=== PATIENT | female | born 1995 | race African-American/Black ===

== ENCOUNTER 2017-02-11 14:11 | Emergency (ER) | payer OTHER | END 2017-02-11 14:20 | disposition left against medical advice (07) | LOC: ERS 14:11 | DX: Z53.21 Procedure and treatment not carried out due to patient leaving prior to being seen by health care provider (principal) ==

== ENCOUNTER 2018-06-07 16:21 | Emergency (ER) | payer OTHER, SELFPAY ==
[2018-06-07] MEDS ORDERED: Morphine 4 MG/ML VIAL ONE (17:06)
[2018-06-07] MEDS ORDERED: Ondansetron PF 4 MG/2 ML Vial ONE (17:06)
--- NOTE | 2018-06-07 17:27 | RAD ---
FRadiograph chest one view: 06/07/2018 HISTORY: 23-year-old female with sickle cell disease presents with sickle cell crisis. COMPARISON: 12/21/2016. FINDINGS: There is cardiomegaly. The lungs are clear. No pneumothorax. No interval change. IMPRESSION: 1. Cardiomegaly, evidence for sickle cell disease. 2. No evidence of pneumonia
[2018-06-07 17:31] LABS: Mean Corpuscular HGB CONC 35.5 g/dL (32.0-36.0); Mean Corpuscular Hemoglobin 30.7 pg (27.0-31.0); Mean Corpuscular Volume 86.4 fL (78.0-98.0); Platelet Count 410 thou/uL (130-400); RBC Distribution Width 14.7 % (11.5-14.5); Red Blood Cell (RBC) Count 3.25 mill/uL (4.20-5.40)
[2018-06-07 17:36] LABS: Bilirubin Negative (Negative); Blood, Urine Negative (Negative); Clarity CLEAR (Clear); Glucose, Urine (Dipstick) Negative (Negative); Leukocyte Negative (Negative); Nitrite Negative (Negative); Protein, Urine (Dipstick) Negative (Neg-Trace); pH, Urine 7.5 (5.0-9.0)
[2018-06-07 17:39] LABS: Pregnancy Test - Urine (BHCG) Negative (Negative); Pregu Control Background? CLEAR/WHITE (CLR/WHITE); Pregu Control Bar Appear? YES (CONTROL BAR)
[2018-06-07 17:39] LABS: ALT (SGPT) 21 U/L (8-55); AST (SGOT) 25 U/L (5-34); Albumin 4.3 g/dL (3.5-5.0); Alkaline Phosphatase 95 U/L (40-150); Anion Gap 12 mmol/L (10-20); BUN (Urea Nitrogen) 6 mg/dL (7.0-18.7); Bilirubin, Total 1.4 mg/dL (0.2-1.2); Calc. Creatinine Clearance 0 mL/min (70-130); Calcium 9.6 mg/dL (7.8-10.44); Carbon Dioxide 25 mmol/L (22-29); Chloride 109 mmol/L (98-107); Estimated GFR-MDRD Greater than 90; Globulin 3.2 g/dL (2.4-3.5); Glucose 87 mg/dL (70-105); Protein, Total 7.5 g/dL (6.0-8.3); Sodium 142 mmol/L (136-145)
[2018-06-07 17:46] LABS: Anisocytosis SLIGHT = 6-15 cells (100X) (0-5/hpf); Band 1 % (5-11); Eosinophils 3 % (0-10); Lymphocytes 25 % (21-51); MDiff Complete? YES; Monocytes 5 % (0-10); Neutrophil 65 % (42-75); Ovalocytes SLIGHT = 2-5 cells (100X) (0-1/hpf); Platelet Morphology Comment Appears Increased; Poikilocytosis SLIGHT = 6-15 cells (100X) (0-5/hpf); Polychromasia MODERATE = 3-4 cells (100X) (0-2/hpf); Reactive Lymphocytes 1 % (0-10); Schistocytes SLIGHT = 2-5 cells (100X) (0-1/hpf); Sickle Cells SLIGHT = 1-5 cells (100X) (None Seen); Spherocytes SLIGHT = 1-5 cells (100X) (None Seen); Target Cells SLIGHT = 2-5 cells (100X) (0-1/hpf); White Blood Cell (WBC) Count 9.7 thou/uL (4.8-10.8)
== END 2018-06-07 18:36 | disposition home or self-care (01) ==
LOC: ERS 16:21
DX: G89.29 Other chronic pain (principal); R51 Headache; F41.9 Anxiety disorder, unspecified; F32.9 Major depressive disorder, single episode, unspecified
CPT/HCPCS: 36415; 71045; 80053; 81003; 81025; 85025; 85046; 93005; 96361; 96374; 96375; J2270; J2405

== ENCOUNTER 2018-06-18 13:29 | Inpatient (IN) | payer SELFPAY ==
--- NOTE | 2018-06-18 14:09 | RAD ---
PA AND LATERAL CHEST: Date: 06/18/18 HISTORY: Chest pain. History of sickle cell. COMPARISON: 12/21/16 study. FINDINGS: Heart size is slightly enlarged. Mediastinal structures are unremarkable. Lungs are clear of any infi ltrative process. IMPRESSION: Mild cardiomegaly. No acute findings. POS: TPC
[2018-06-18 14:22] LABS: Hemoglobin 10.4 g/dL (12.0-16.0); Mean Corpuscular HGB CONC 36.3 g/dL (32.0-36.0); Mean Corpuscular Hemoglobin 31.3 pg (27.0-31.0); Mean Corpuscular Volume 86.1 fL (78.0-98.0); Mean Platelet Volume 8.1 fL (7.4-10.4); Platelet Count 453 thou/uL (130-400); RBC Distribution Width 13.1 % (11.5-14.5); Red Blood Cell (RBC) Count 3.34 mill/uL (4.20-5.40); White Blood Cell (WBC) Count 21.7 thou/uL (4.8-10.8)
[2018-06-18 14:24] LABS: Reticulocyte Count 3.8 % (0.5-1.5)
[2018-06-18 14:44] LABS: ALT (SGPT) 12 U/L (8-55); AST (SGOT) 20 U/L (5-34); Albumin 4.2 g/dL (3.5-5.0); Alkaline Phosphatase 79 U/L (40-150); Anion Gap 12 mmol/L (10-20); BUN (Urea Nitrogen) 11 mg/dL (7.0-18.7); Bilirubin, Total 1.1 mg/dL (0.2-1.2); Calc. Creatinine Clearance 0 mL/min (70-130); Calcium 9.4 mg/dL (7.8-10.44); Carbon Dioxide 25 mmol/L (22-29); Chloride 106 mmol/L (98-107); Estimated GFR-MDRD Greater than 90; Globulin 3.1 g/dL (2.4-3.5); Glucose 83 mg/dL (70-105); Potassium 4.1 mmol/L (3.5-5.1); Protein, Total 7.3 g/dL (6.0-8.3); Sodium 139 mmol/L (136-145)
[2018-06-18 14:46] LABS: Eosinophils 10 % (0-10); Lymphocytes 36 % (21-51); MDiff Complete? YES; Monocytes 9 % (0-10); Neutrophil 45 % (42-75); Nucleated RBC 2 % (0); Platelet Morphology Comment Appears Increased; Polychromasia SLIGHT = 2-3 cells (100X) (0-2/hpf); Schistocytes SLIGHT = 2-5 cells (100X) (0-1/hpf)
[2018-06-18] MEDS ORDERED: HYDROmorphone 0.5 MG/0.5 ML SYRINGE ONE (15:49)
[2018-06-18 17:07] LABS: Bilirubin Negative (Negative); Blood, Urine Negative (Negative); Clarity CLEAR (Clear); Glucose, Urine (Dipstick) Negative (Negative); Leukocyte Negative (Negative); Nitrite Negative (Negative); Protein, Urine (Dipstick) Negative (Neg-Trace); Specific Gravity, Urine 1.014 (1.002-1.036); pH, Urine 6.5 (5.0-9.0)
[2018-06-18 17:11] LABS: Pregnancy Test - Urine (BHCG) Negative (Negative); Pregu Control Background? CLEAR/WHITE (CLR/WHITE); Pregu Control Bar Appear? YES (CONTROL BAR); Specific Gravity 1.014 (1.002-1.036)
--- NOTE | 2018-06-18 18:19 | PDOC.FPRHP ---
- History of Present Illness Chief Complaint: pain History of Present Illness: 23 yo F with sickle cell presents to ED for diffuse joint pain. Started 1 week ago after moving around furniture. Tried to stay hydrated but the pain worsened despite taking her home norco & dilaudid. However, she doesn't take the recommneded amount due its addictive properties. She also endorses some rhinorrhea and cough starting after exposure to sick contact. Subjective fevers/ chills but no productive cough or wheezing. Says she has multiple crisis a year , usually needing to be hospitalized q3mo for pain control. She follows with Dr. Berumen in clinic and a specialist at [facility]. - Allergies/Adverse Reactions Allergies Allergy/AdvReac Type Severity Reaction Status Date / Time apple AdvReac Verified 06/18/18 21:21 hydromorphone [From Dilaudid] AdvReac Verified 06/18/18 21:21 - Home Medications Medication Instructions Recorded Confirmed Type HYDROcodone Bit/APAP 10/325 [Bogata] 1 - 2 tab PO Q6HR PRN 08/24/13 06/18/18 History Ibuprofen 800 mg PO Q8HR PRN 12/21/15 06/18/18 History HYDROmorphone [Dilaudid] 1 - 2 tab PO Q3H PRN 05/15/16 06/18/18 History Hydroxyurea [Hydrea] 500 mg PO TID 09/01/16 06/18/18 History Folic Acid 1 mg PO DAILY 06/18/18 06/18/18 History Naproxen [EC-Naproxen] 500 mg PO Q12H 06/18/18 06/18/18 History diphenhydrAMINE [Benadryl] 25 mg PO Q4HR PRN 06/18/18 06/18/18 History traMADol HCl [Tramadol HCl] 1 - 2 tab PO Q6H PRN 06/18/18 06/18/18 History - History PMHx: MDD, anxiety PSHx: cholecystectomy FHx: sickle cell trait Social: denies t/e/d - Review of Systems General: reports: fever/chills, weight/appetite/sleep changes, fatigue Eyes: denies: vision changes ENT: reports: rhinorrhea Respiratory: reports: cough. denies: shortness of breath Cardiovascular: denies: chest pain, palpitation Gastrointestinal: denies: nausea, vomiting, diarrhea, constipation, GI bleeding Genitourinary: denies: dysuria Skin: denies: rashes, lesions Musculoskeletal: reports: pain, tenderness Neurological: reports: weakness. denies: seizure Psychological: reports: anxiety, depression - Vital signs BP: 136/72, Pulse: 81, Resp: 18, Temp: 98.8 (Oral), Pain: 8, O2 sat: 98 on Room Air, Time: 06/18/2018 13:38. - Physical Exam Constitutional: NAD, awake, alert and oriented -Constitutional: dry mucosal membranes HEENT: normocephalic and atraumatic, PERRLA, EOMI, conjunctiva clear, no scleral icterus Neck: supple, FROM, trachea midline Chest: no-tender to palpation, no lesions Heart: RRR, normal S1/S2, pulses present Lungs: CTAB, no respiratory distress, no wheezing Abdomen: soft, non-tender Neurological: no focal deficit, CN II-XII intact Skin: no rash/lesions, capillary refill <2 seconds Heme/Lymphatic: no unusual bruising or bleeding, no purpura FMR H&P: Results - Labs Result Diagrams: 06/18/18 14:06 06/18/18 14:06 Lab results: WBC 21.7 thou/uL (4.8-10.8) H 06/18/18 14:06 Hgb 10.4 g/dL (12.0-16.0) L 06/18/18 14:06 Hct 28.7 % (36.0-47.0) L 06/18/18 14:06 MCV 86.1 fL (78.0-98.0) 06/18/18 14:06 Plt Count 453 thou/uL (130-400) H 06/18/18 14:06 Sodium 139 mmol/L (136-145) 06/18/18 14:06 Potassium 4.1 mmol/L (3.5-5.1) 06/18/18 14:06 Chloride 106 mmol/L (98-107) 06/18/18 14:06 Carbon Dioxide 25 mmol/L (22-29) 06/18/18 14:06 BUN 11 mg/dL (7.0-18.7) 06/18/18 14:06 Creatinine 0.74 mg/dL (0.6-1.1) 06/18/18 14:06 Glucose 83 mg/dL (70-105) 06/18/18 14:06 Calcium 9.4 mg/dL (7.8-10.44) 06/18/18 14:06 Total Bilirubin 1.1 mg/dL (0.2-1.2) 06/18/18 14:06 AST 20 U/L (5-34) 06/18/18 14:06 ALT 12 U/L (8-55) 06/18/18 14:06 Alkaline Phosphatase 79 U/L (40-150) 06/18/18 14:06 Serum Total Protein 7.3 g/dL (6.0-8.3) 06/18/18 14:06 Albumin 4.2 g/dL (3.5-5.0) 06/18/18 14:06 Urine Ketones Negative mg/dL (Negative) 06/18/18 16:40 Urine Blood Negative (Negative) 06/18/18 16:40 Urine Nitrite Negative (Negative) 06/18/18 16:40 Ur Leukocyte Esterase Negative (Negative) 06/18/18 16:40 - Radiology Interpretation Chest x-ray Status: image reviewed by me, report reviewed by me Additional comment: mild cardiomegaly no new infiltrate FMR H&P: A/P - Problem List (1) Sickle cell crisis Current Visit: No Status: Acute Code(s): D57.00 - HB-SS DISEASE WITH CRISIS , UNSPECIFIED (2) Intractable pain Current Visit: No Status: Resolved Code(s): R52 - PAIN, UNSPECIFIED (3) Depression Current Visit: Yes Status: Acute Code(s): F32.9 - MAJOR DEPRESSIVE DISORDER , SINGLE EPISODE, UNSPECIFIED (4) Anxiety Current Visit: Yes Status: Acute Code(s): F41.9 - ANXIETY DISORDER, UNSPECIFIED - Plan #Acute sickle cell crisis -Likely precipitated from dehydration from physical exertion -s/p 1L in ED, will bolus 1L, start in mIVF -Afebrile, CXR neg for new infiltrate-no concern for acute chest syndrome -Absolute retic count <2, c/w hypoproliferation -Continue home dilaudid & norco for pain control with IV morphine for breakthrough #Sickle cell anemia -Hb 10, around baseline for patient -resume home pain meds & hydroxyurea & folic acid #Depression -not interested in meds at this point -continue outpt CBT with Dr. Holliday since has been helping #Anxiety -see above dvt ppx: Not indicated dispo: <[address] Bal FMR H&P: Upper Level - Pertinent history 23 yo AAF with PMH of sickle cell disease presenting with worsening hip and back pain. Pt denies fevers, cough, trouble breathing, or CP. Pt notes she feels similar to previous pain crises in the past. - Pertinent findings VSS Gen: pleasant, in mild distress 2/2 pain CV: RRR Resp: CTAB - Plan Date/Time: 06/18/181818 I, Aditya Pastor MD PGY3, have evaluated this patient and agree with findings/ plan as outlined by software developer intern resident. Pertinent changes/additions are listed here. 1. Sickle cell pain crisis -Pt presents with worsening pain similar to previous pain crises. Pt is on Bogata and Dilaudid at home for pain control. Pt received 2 mg of IV dilaudid in the ER and notes an improvement in symptoms. -Pt had routine workup in ER with CXR that showed no acute process. Lab work reveals CBC that appear stable at pt's baseline. Absolute reticulocyte count is 2.6 which indicates slight hypoproliferation. No evidence of infection on lab work. No concern for acute chest syndrome. -Admit pt to medical observation for pain control. -Continue home medications and provide morphine 4 mg q4h PRN severe pain and morphine 2 mg q2h PRN breakthrough pain. -Continue to monitor closely. FULL code disposition: Admit to medical observation for anticipated length of stay less than two midnights, pending clinical course. Addendum - Attending - Attending Attestation Date/Time: 06/18/182135 I personally evaluated the patient and discussed the management with Drs. Pa/ Dawit I agree with the History, Examination, Assessment and Plan documented above with any addition or exceptions noted below. 23 yo AAF with Sickle cell anemia well known to [facility] followed by [facility] Dr Fatima and CAREM[facility] [place]. Patient with 10 days pain crisis to hips and back not relieved with home regimen of norco and dilaudid. Patient lab in Jan 2019 reticulocyte count 5.7 LDH 212 plts 594,000 H/H 12/28. PMHX s/p cholecystectomy vaccine UTD , hx eye O.S. related SC diplopia, depression/anxiety, asthmatic bronchitis,DUB off contraceptive Incidental CXR finding mild cardiomegaly no infiltrates Echocardiogram 2015 NL last transfusion October 2017 patient on hydroxyurea and folic acid Current Lab neg HCG WBC 21,700 HG 10.4 HCT 28 Plts 453,000 U/A negative micro flu swab pending procalcitonin pending . Rec hydration and iv opiod pain relief consider GRINDER AND PLATER and/or ketamine if pain relief ineffective monitor O2 sat and if decline significantly from baseline consider oxygen supplementation. Watch s/s septicemia note elevated WBC likely reactive continue monitor VS and expectant management,continue hydroxyurea consult Dr Fatima prn.
[2018-06-18] MEDS ORDERED: Ondansetron ODT 4 MG TAB SL PRN (19:41)
[2018-06-18] MEDS ORDERED: Ondansetron PF 4 MG/2 ML Vial IVP PRN (19:41)
[2018-06-18] MEDS ORDERED: Lactated Ringer's 1,000 ML IV SCH (19:44)
[2018-06-18 19:45] VITALS: BMI 30.2
[2018-06-18] MEDS: Sodium Chloride 0.9% 1,000 ML IV SCH (20:32)
[2018-06-18] MEDS: Morphine 2 MG/ML SYRINGE SLOW IVP PRN (20:38)
[2018-06-18] MEDS: Lactated Ringer's 1,000 ML IV SCH (21:42)
[2018-06-18] MEDS: Acetaminophen 325 MG TAB PO PRN (22:55)
[2018-06-18] MEDS ORDERED: HYDROMORPHONE PO PRN (23:16)
[2018-06-18] MEDS ORDERED: HYDROcodone/Acetaminophen 10/325 mg Tablet PO PRN (23:16)
[2018-06-18] MEDS ORDERED: Morphine 4 MG/ML VIAL SLOW IVP PRN (23:18)
[2018-06-18] MEDS ORDERED: diphenhydrAMINE 25 MG CAP PO PRN ×2 (23:21→23:33)
[2018-06-18] MEDS ORDERED: HYDROmorphone 2 MG TAB PO PRN (23:28)
[2018-06-19] MEDS: HYDROmorphone 2 MG TAB PO PRN ×2 (00:25→05:59)
[2018-06-19] MEDS: Sodium Chloride 0.9% 1,000 ML IV SCH (03:12)
[2018-06-19 05:48] LABS: Hemoglobin 8.9 g/dL (12.0-16.0); Mean Corpuscular HGB CONC 35.8 g/dL (32.0-36.0); Mean Corpuscular Hemoglobin 30.9 pg (27.0-31.0); Mean Corpuscular Volume 86.3 fL (78.0-98.0); Mean Platelet Volume 8.3 fL (7.4-10.4); Platelet Count 404 thou/uL (130-400); Red Blood Cell (RBC) Count 2.88 mill/uL (4.20-5.40); White Blood Cell (WBC) Count 10.9 thou/uL (4.8-10.8)
[2018-06-19 05:49] LABS: Eosinophils 14 % (0-10); Lymphocytes 52 % (21-51); MDiff Complete? YES; Monocytes 6 % (0-10); Neutrophil 28 % (42-75); Platelet Morphology Comment Appears Increased; Target Cells SLIGHT = 2-5 cells (100X) (0-1/hpf)
--- NOTE | 2018-06-19 06:52 | PDOC.FM ---
- Subjective Subjective: Ms. De Santiago says she continues to have increased pain above baseline. Says morphine is taking off the edge. Denies SOB, respiratory symptoms. Does have some nasal congestion, itchy throat. Takes loratadine at home for allergies. - Objective Vital Signs & Weight: Vital Signs (12 hours) Temp Pulse Resp BP BP Pulse Ox 06/19/18 05:49 73 16 108/58 L 98 06/19/18 04:19 98.1 F 77 20 91/49 L 97 06/19/18 01:39 81 16 135/77 98 06/19/18 00:29 81 16 116/66 98 06/18/18 19:45 98.5 F 75 16 130/58 L 100 Weight Weight 75.024 kg I&O: 06/17/18 06/18/18 06/19/18 06:59 06:59 06:59 Intake Total 1892 Output Total 1999 Balance -108 Result Diagrams: 06/19/18 04:27 06/18/18 14:06 Phys Exam - Physical Examination Constitutional: NAD Respiratory: clear to auscultation bilateral Cardiovascular: RRR, no significant murmur Gastrointestinal: soft, non-tender, positive bowel sounds Musculoskeletal: no edema Neurological: non-focal Psychiatric: normal affect Skin: normal turgor Dx/Plan (1) Sickle cell pain crisis Code(s): D57.00 - HB-SS DISEASE WITH CRISIS, UNSPECIFIED Status: Acute (2) Sickle cell anemia Code(s): D57.1 - SICKLE-CELL DISEASE WITHOUT CRISIS Status: Acute (3) Anxiety Code(s): F41.9 - ANXIETY DISORDER, UNSPECIFIED Status: Acute (4) Depression Code(s): F32.9 - MAJOR DEPRESSIVE DISORDER, SINGLE EPISODE, UNSPECIFIED Status : Acute - Plan Plan: Acute sickle cell pain crisis -Likely precipitated from dehydration from physical exertion -Continue IVF -Afebrile, CXR neg for new infiltrate-no concern for acute chest syndrome -Absolute retic count 2.6, c/w hypoproliferation -Continue home dilaudid & norco for pain control with IV morphine for breakthrough Sickle cell anemia -Hb 8.9, around baseline for patient -resume home pain meds & hydroxyurea & folic acid Seasonal allergies - add loratadine Depression -not interested in meds at this point -continue outpt CBT with Dr. Holliday since has been helping Anxiety -see above dvt ppx: Not indicated dispo: pending pain improvement Addendum - Attending - Attending Attestation Date/Time: 06/19/18 [id number] I personally evaluated the patient and discussed the management with Dr. Caceres. I agree with the History, Examination, Assessment and Plan documented above with any addition or exceptions noted below. Sickle cell pain crisis-last one was in Jan 2018 at [facility] in [place]. Continue IVF , O2, hydroxyurea. Schedule home pain medications and give prn IV morphine. May need PRODUCTION TEAM LEADER pump if we can't get control of her pain.
[2018-06-19] MEDS: Hydroxyurea 500 MG CAP PO SCH ×3 (08:22→20:52)
[2018-06-19] MEDS: Folic Acid 1 MG TAB PO SCH (08:22)
[2018-06-19] MEDS: Lactated Ringer's 1,000 ML IV SCH ×2 (08:27→17:37)
[2018-06-19] MEDS ORDERED: HYDROmorphone 2 MG TAB PO PRN (08:31)
[2018-06-19] MEDS ORDERED: Loratadine 10 MG TAB PO PRN (08:45)
[2018-06-19] MEDS ORDERED: Docusate 100 MG CAP PO PRN (08:46)
[2018-06-19] MEDS ORDERED: Enoxaparin Sodium 40 MG/0.4 ML SYRINGE SC SCH (09:00)
[2018-06-19] MEDS: HYDROcodone/Acetaminophen 10/325 mg Tablet PO SCH ×3 (09:34→20:52)
[2018-06-19] MEDS: Morphine 2 MG/ML SYRINGE SLOW IVP PRN ×4 (09:40→23:28)
[2018-06-19] MEDS: HYDROmorphone 2 MG TAB PO SCH ×2 (11:44→17:37)
[2018-06-20] MEDS: HYDROmorphone 2 MG TAB PO SCH ×5 (01:04→23:59)
[2018-06-20] MEDS: Lactated Ringer's 1,000 ML IV SCH ×3 (02:26→20:36)
[2018-06-20] MEDS: HYDROcodone/Acetaminophen 10/325 mg Tablet PO SCH ×4 (04:24→20:31)
--- NOTE | 2018-06-20 06:58 | PDOC.FM ---
- Subjective Subjective: Ms. De Santiago reports she is feeling better and pain is well controlled but says she feels increased pain when the morphine is wearing off. Tolerating PO intake well. Denies difficulty breathing, chest pain. - Objective Vital Signs & Weight: Vital Signs (12 hours) Temp Pulse Resp BP Pulse Ox 06/20/18 04:26 98.4 F 77 18 114/59 L 100 06/19/18 23:44 98.3 F 71 15 106/62 97 Weight Weight 75.024 kg I&O: 06/18/18 06/19/18 06/20/18 06:59 06:59 06:59 Intake Total 1892 5087 Output Total 19990 Balance -108 537 Result Diagrams: 06/19/18 04:27 06/18/18 14:06 Phys Exam - Physical Examination Constitutional: NAD Respiratory: clear to auscultation bilateral Cardiovascular: RRR, no significant murmur Gastrointestinal: soft, non-tender Musculoskeletal: no edema Neurological: non-focal, moves all 4 limbs Psychiatric: normal affect Skin: normal turgor Dx/Plan (1) Sickle cell pain crisis Code(s): D57.00 - HB-SS DISEASE WITH CRISIS, UNSPECIFIED Status: Acute (2) Sickle cell anemia Code(s): D57.1 - SICKLE-CELL DISEASE WITHOUT CRISIS Status: Acute (3) Anxiety Code(s): F41.9 - ANXIETY DISORDER, UNSPECIFIED Status: Acute (4) Depression Code(s): F32.9 - MAJOR DEPRESSIVE DISORDER, SINGLE EPISODE, UNSPECIFIED Status : Acute - Plan Plan: Acute sickle cell pain crisis -Likely precipitated from dehydration from physical exertion -Continue IVF -Afebrile, CXR neg for new infiltrate-no concern for acute chest syndrome -Absolute retic count 2.6, c/w hypoproliferation -Continue home dilaudid & norco for pain control with IV morphine for breakthrough Sickle cell anemia -Hb 8.9, around baseline for patient -resume home pain meds & hydroxyurea & folic acid Seasonal allergies - continue loratadine Depression -not interested in meds at this point -continue outpt CBT with Dr. Holliday since has been helping Anxiety -see above dvt ppx: Not indicated dispo: pending pain improvement Addendum - Attending - Attending Attestation Date/Time: 06/20/18 [id number] I personally evaluated the patient and discussed the management with Dr. Caceres I agree with the History, Examination, Assessment and Plan documented above with any addition or exceptions noted below. Sickle cell crisis- pain improving but still requiring iv morphine. Continue IVF, O2, pain meds. Expect d/c in next 1-2 days
[2018-06-20] MEDS: Hydroxyurea 500 MG CAP PO SCH ×3 (08:15→20:32)
[2018-06-20] MEDS: Folic Acid 1 MG TAB PO SCH (08:16)
[2018-06-20] MEDS: Morphine 4 MG/ML VIAL SLOW IVP PRN ×3 (09:17→20:30)
[2018-06-20] MEDS: Loratadine 10 MG TAB PO SCH (09:17)
[2018-06-21] MEDS: Morphine 4 MG/ML VIAL SLOW IVP PRN ×6 (00:34→20:12)
[2018-06-21] MEDS: HYDROcodone/Acetaminophen 10/325 mg Tablet PO SCH ×4 (02:33→19:47)
[2018-06-21] MEDS: HYDROmorphone 2 MG TAB PO SCH ×4 (05:46→23:05)
[2018-06-21] MEDS: Lactated Ringer's 1,000 ML IV SCH ×4 (05:47→23:06)
--- NOTE | 2018-06-21 07:11 | PDOC.FM ---
- Subjective Subjective: Pt report doing fair this morning. She reports pain is moderately controlled. She denies nausea, vomiting, or chest pain. Denies SOB - Objective MAR Reviewed: Yes Vital Signs & Weight: Vital Signs (12 hours) Temp Pulse Resp BP Pulse Ox 06/21/18 05:48 98 F 86 18 118/76 97 06/21/18 00:45 98.2 F 83 18 112/74 95 06/20/18 20:00 98.3 F 91 18 127/85 98 Weight Weight 75.024 kg I&O: 06/20/18 06/21/18 06/22/18 06:59 06:59 06:59 Intake Total 5087 1908 Output Total 4550 1200 Balance 537 708 Result Diagrams: 06/19/18 04:27 06/18/18 14:06 Phys Exam - Physical Examination Constitutional: NAD HEENT: moist MMs Neck: no JVD, full ROM calm respirations, equal chest rise dry skin, regular rate and rhythm Gastrointestinal: soft, non-tender, no distention, positive bowel sounds Musculoskeletal: no edema, pulses present Neurological: moves all 4 limbs Psychiatric: normal affect, A&O x 3 Skin: cap refill <2 seconds Dx/Plan (1) Anxiety Code(s): F41.9 - ANXIETY DISORDER, UNSPECIFIED Status: Acute (2) Depression Code(s): F32.9 - MAJOR DEPRESSIVE DISORDER, SINGLE EPISODE, UNSPECIFIED Status : Acute (3) SC disease Code(s): D57.20 - SICKLE-CELL/HB-C DISEASE WITHOUT CRISIS Status: Acute (4) Sickle cell pain crisis Code(s): D57.00 - HB-SS DISEASE WITH CRISIS, UNSPECIFIED Status: Acute - Plan Plan: Acute sickle cell pain crisis -Continue IVFs -Continue scheduled and PRN opioid pain management -Continues to be Afebrile, CXR shows no acute intrathoracic changes Sickle cell anemia -Hbg near baseline -Continue home meds, hydroxyurea, and folic acid Seasonal allergies -Continue loratadine Depression/anxiety -CBT with Dr. Holliday outpt
[2018-06-21] MEDS: Folic Acid 1 MG TAB PO SCH (08:04)
[2018-06-21] MEDS: Loratadine 10 MG TAB PO SCH (08:04)
[2018-06-21] MEDS: Enoxaparin Sodium 40 MG/0.4 ML SYRINGE SC SCH (08:04)
[2018-06-21] MEDS: Hydroxyurea 500 MG CAP PO SCH ×3 (09:16→19:48)
--- NOTE | 2018-06-21 12:42 | PRG ---
DATE OF SERVICE: 06/21/2018 Ms. De Santiago is an unfortunate 23-year-old black female with sickle cell disease. She was admitted in a pain crisis. She is requiring large amounts of pain medications and fluids, but is feeling somewhat improved. She also gives a history of possible anovulatory cycles. She is overweight with facial acne, and we need to consider the possibility of PCOS. I recommend we do an A1c and lipids. She is not hypertensive. In the event, clinically, she is somewhat improved, though we will continue with aggressive pain management and fluid management. Job ID: [id number]
[2018-06-22] MEDS: Morphine 4 MG/ML VIAL SLOW IVP PRN ×6 (00:04→20:58)
[2018-06-22] MEDS: HYDROcodone/Acetaminophen 10/325 mg Tablet PO SCH ×4 (02:06→19:40)
[2018-06-22] MEDS: HYDROmorphone 2 MG TAB PO SCH ×3 (05:48→17:20)
--- NOTE | 2018-06-22 06:36 | PDOC.FM ---
- Subjective Subjective: Pt states her pain is turning the corner. She states she was able to shower and walk some yesterday. She reports occasional SOB and a twinge of chest pain. She reports he pain is primarily in her hips. - Objective MAR Reviewed: Yes Vital Signs & Weight: Vital Signs (12 hours) Temp Pulse Resp BP Pulse Ox 06/22/18 04:00 98.5 F 83 16 106/67 99 06/22/18 00:00 98.2 F 88 16 115/70 100 06/21/18 20:25 98.1 F 87 16 123/82 100 06/21/18 20:00 97 Weight Weight 75.024 kg I&O: 06/20/18 06/21/18 06/22/18 06:59 06:59 06:59 Intake Total 5087 1908 1720 Output Total 4550 1200 Balance 807 732 7069 Result Diagrams: 06/19/18 04:27 06/18/18 14:06 Phys Exam - Physical Examination Constitutional: NAD HEENT: moist MMs Neck: no JVD, full ROM Respiratory: no wheezing, clear to auscultation bilateral Cardiovascular: RRR, no significant murmur, no rub Gastrointestinal: soft, no distention, positive bowel sounds Musculoskeletal: no edema, pulses present Neurological: normal sensation, moves all 4 limbs Psychiatric: normal affect, A&O x 3 Skin: cap refill <2 seconds Dx/Plan (1) Anxiety Code(s): F41.9 - ANXIETY DISORDER, UNSPECIFIED Status: Acute (2) Depression Code(s): F32.9 - MAJOR DEPRESSIVE DISORDER, SINGLE EPISODE, UNSPECIFIED Status : Acute (3) SC disease Code(s): D57.20 - SICKLE-CELL/HB-C DISEASE WITHOUT CRISIS Status: Acute (4) Sickle cell pain crisis Code(s): D57.00 - HB-SS DISEASE WITH CRISIS, UNSPECIFIED Status: Acute - Plan Plan: Acute sickle cell pain crisis -Continue IVFs -Continue scheduled and PRN opioid pain management -Continues to be Afebrile, CXR shows no acute intrathoracic changes Sickle cell anemia -Hbg near baseline -Continue home meds, hydroxyurea, and folic acid Seasonal allergies -Continue loratadine Depression/anxiety -CBT with Dr. Holliday outpt
[2018-06-22] MEDS: Folic Acid 1 MG TAB PO SCH (07:55)
[2018-06-22] MEDS: Enoxaparin Sodium 40 MG/0.4 ML SYRINGE SC SCH (07:55)
[2018-06-22] MEDS: Hydroxyurea 500 MG CAP PO SCH ×3 (07:55→19:40)
[2018-06-22] MEDS: Loratadine 10 MG TAB PO SCH (07:55)
[2018-06-22] MEDS: Lactated Ringer's 1,000 ML IV SCH ×3 (07:57→19:42)
[2018-06-22 09:48] LABS: Cardiac Risk 3.1 (Less than 4.5)
--- NOTE | 2018-06-22 12:30 | PRG ---
DATE OF SERVICE: 06/22/2018 SUBJECTIVE: Ms. De Santiago is much more comfortable this morning. Her pain is becoming under control. We will continue to adjust her medications and likely discharge tomorrow. Lipids appear good with a triglyceride of 83, cholesterol 147, LDL 82, HDL of 48. Job ID: [id number]
[2018-06-23] MEDS: HYDROmorphone 2 MG TAB PO SCH ×3 (00:15→12:28)
[2018-06-23] MEDS: Morphine 4 MG/ML VIAL SLOW IVP PRN ×2 (01:15→08:40)
[2018-06-23] MEDS: Acetaminophen 325 MG TAB PO PRN (01:19)
[2018-06-23] MEDS: HYDROcodone/Acetaminophen 10/325 mg Tablet PO SCH ×3 (02:29→14:20)
[2018-06-23] MEDS: Lactated Ringer's 1,000 ML IV SCH (06:01)
--- NOTE | 2018-06-23 06:24 | PDOC.FM ---
- Subjective Subjective: Reports pain is improving. Denies chest pain. Reports some shortness of breath but it is her baseline. She has not been up walking yet. Voiding and stooling. - Objective MAR Reviewed: Yes Vital Signs & Weight: Vital Signs (12 hours) Temp Pulse Resp BP Pulse Ox 06/23/18 04:06 98.4 F 86 18 104/68 98 06/23/18 01:04 99.4 F 91 20 116/76 98 06/22/18 20:28 98.9 F 80 18 128/83 100 06/22/18 20:00 99 Weight Weight 75.024 kg I&O: 06/21/18 06/22/18 06/23/18 06:59 06:59 06:59 Intake Total 1908 1720 2160 Output Total 1200 Balance 708 1720 2160 Result Diagrams: 06/19/18 04:27 06/18/18 14:06 Phys Exam - Physical Examination Constitutional: NAD HEENT: moist MMs Neck: supple Respiratory: no wheezing, clear to auscultation bilateral Cardiovascular: RRR, no significant murmur Gastrointestinal: soft, non-tender, positive bowel sounds Musculoskeletal: no edema, pulses present Neurological: moves all 4 limbs Psychiatric: normal affect, A&O x 3 Skin: normal turgor Dx/Plan (1) Sickle cell crisis Code(s): D57.00 - HB-SS DISEASE WITH CRISIS, UNSPECIFIED Status: Acute (2) Anxiety Code(s): F41.9 - ANXIETY DISORDER, UNSPECIFIED Status: Acute (3) Depression Code(s): F32.9 - MAJOR DEPRESSIVE DISORDER, SINGLE EPISODE, UNSPECIFIED Status : Acute (4) GERD (gastroesophageal reflux disease) Code(s): K21.9 - GASTRO-ESOPHAGEAL REFLUX DISEASE WITHOUT ESOPHAGITIS Status: Acute (5) Normocytic anemia Code(s): D64.9 - ANEMIA, UNSPECIFIED Status: Acute (6) Sickle cell anemia Code(s): D57.1 - SICKLE-CELL DISEASE WITHOUT CRISIS Status: Acute - Plan Plan: 23yo female with hx of sickle cell anemia presenting with sickle cell crisis Acute sickle cell pain crisis - Continue LR @110 - Continue scheduled and PRN opioid pain management - Afebrile, CXR shows no acute intrathoracic changes Sickle cell anemia - Hgb near baseline - Continue home meds hydroxyurea, and folic acid Seasonal allergies - Continue loratadine Depression/anxiety - CBT with Dr. Holliday outpt Code Status: FULL DVT ppx: Lovenox PCP: [facility] (Dr Berumen)
[2018-06-23 08:21] VITALS: TEMP 98.5
[2018-06-23] MEDS: Folic Acid 1 MG TAB PO SCH (08:35)
[2018-06-23] MEDS: Loratadine 10 MG TAB PO SCH (08:35)
[2018-06-23] MEDS: Enoxaparin Sodium 40 MG/0.4 ML SYRINGE SC SCH (08:35)
[2018-06-23] MEDS: Hydroxyurea 500 MG CAP PO SCH ×2 (08:36→14:21)
[2018-06-23] MEDS ORDERED: Morphine 2 MG/ML SYRINGE SLOW IVP PRN (09:16)
[2018-06-23 12:39] VITALS: BP 113/74
--- NOTE | 2018-06-23 14:40 | PRG ---
DATE OF SERVICE: 06/23/2018 Ms. De Santiago's pain control is now tolerable. Overall, she is much improved and likely be discharged later this afternoon if her pain is controlled with oral medications only. Job ID: [id number]
--- NOTE | 2018-06-24 16:55 | DIS ---
DATE OF ADMISSION: 06/20/2018 DATE OF DISCHARGE: 06/23/2018 RESIDENT: Shelbie Orta MD, PGY-1. ADMITTING ATTENDING: Travis Bal MD DISCHARGE ATTENDING: Jim Locke MD CONSULTS: None. PROCEDURE: Chest x-ray, mild cardiomegaly, no acute findings. PRIMARY DIAGNOSIS: Sickle cell crisis. SECONDARY DIAGNOSES: 1. Sickle cell anemia. 2. Seasonal allergies. 3. Depression and anxiety. DISCHARGE MEDICATIONS: 1. Benadryl 25 mg q.4 hours p.r.n. 2. Folic acid 1 mg daily. 3. Draper 10/325, 1-2 tabs q.6 hours p.r.n. 4. Dilaudid 4 mg, 1 to 2 tabs q.3 hours p.r.n. 5. Hydroxyurea 500 mg t.i.d. 6. Ibuprofen 800 mg q.8 hours p.r.n. 7. Naproxen 500 mg q.12 hours p.r.n. 8. Tramadol 50 mg 1 to 2 tabs q.6 hours p.r.n. HISTORY OF PRESENT ILLNESS/HOSPITAL COURSE: Ms. De Santiago is a 23-year-old female with past medical history of sickle cell anemia, who presented to the ED with sickle cell crisis starting one week ago after moving furniture. She has multiple crises a year, usually hospitalized every 3 months for pain control. Follows with Dr. Berumen at [facility] and a color maker dyer at [facility] in [place]. Vitals on admission, the patient was afebrile, blood pressure 136/72, pulse 81. Chest x-ray showed mild cardiomegaly. No new infiltrates. The patient received 2 L of normal saline and was started on maintenance IV fluids. No concern for acute chest syndrome. Absolute retic count less than 2, consistent with hypo-proliferation. The patient was continued on home Dilaudid and Draper with IV morphine for breakthrough. In regard to the sickle cell anemia, her hemoglobin was 10, which was around baseline for the patient. She was continued on hydroxyurea and folic acid. The patient was able to slowly wean from breakthrough IV morphine, stable on home Dilaudid and Draper, and ready for discharge on the day of admission. She did report having some help at home from her mother to care for her daughter while she was still having pain. In regard to her depression, she is not interested in medications at this point. She will continue outpatient CBT with Dr. Holliday. DISPOSITION: Stable. DISCHARGE INSTRUCTIONS: 1. Location: Home. 2. Diet: No restrictions. 3. Activity: As tolerated. 4. Followup: Follow up with PCP, Dr. Berumen, at [facility] within 7 days. Job ID: [id number]
== END 2018-06-23 17:50 | disposition home or self-care (01) | DRG 812 ==
LOC: ERS 13:29 → 2SW 19:32 → OBSVTOIN 06-20 10:52 → T4-B 06-20 12:33
PROVIDERS: ADMIT Family Medicine; ATTEND Family Medicine
DX: D57.00 Hb-SS disease with crisis, unspecified (principal); F32.9 Major depressive disorder, single episode, unspecified; F41.9 Anxiety disorder, unspecified; Z88.8 Allergy status to other drugs, medicaments and biological substances; Z90.49 Acquired absence of other specified parts of digestive tract
CPT/HCPCS: 36415; 71046; 80053; 80061; 81003; 81025; 83036; 85025; 85046; 90471; 90732; 96361; 96365; 96366; G0009; J1170; J1650; J2270; Q0163

== ENCOUNTER 2018-10-11 16:31 | Emergency (ER) | payer SELFPAY ==
[2018-10-11 17:21] LABS: Bacteria/HPF None Seen HPF (None Seen); Bilirubin Negative (Negative); Blood, Urine Trace (Negative); Clarity Clear (Clear); Glucose, Urine (Dipstick) Normal (Negative); Leukocyte Negative Leu/uL (Negative); Nitrite Negative (Negative); Protein, Urine (Dipstick) Negative (Neg-Trace); RBC/HPF 0-3 HPF (0-3); Squamous Epithelial 0-3 HPF (0-3); Urobilinogen Normal mg/dL (Less than 2); WBC/HPF 0-3 HPF (0-3)
[2018-10-11 17:36] LABS: Reticulocyte Count 6.6 % (0.5-1.5)
[2018-10-11 17:42] LABS: Hemoglobin 9.1 g/dL (12.0-16.0); Mean Corpuscular HGB CONC 35.2 g/dL (32.0-36.0); Mean Corpuscular Hemoglobin 30.1 pg (27.0-31.0); Mean Corpuscular Volume 85.4 fL (78.0-98.0); Mean Platelet Volume 7.7 fL (7.4-10.4); Platelet Count 395 thou/uL (130-400); RBC Distribution Width 15.8 % (11.5-14.5); Red Blood Cell (RBC) Count 3.01 mill/uL (4.20-5.40); White Blood Cell (WBC) Count 11.5 thou/uL (4.8-10.8)
[2018-10-11 17:57] LABS: ALT (SGPT) 24 U/L (8-55); AST (SGOT) 26 U/L (5-34); Albumin 4.2 g/dL (3.5-5.0); Alkaline Phosphatase 111 U/L (40-150); Anion Gap 10 mmol/L (10-20); BUN (Urea Nitrogen) 11 mg/dL (7.0-18.7); Bilirubin, Total 1.4 mg/dL (0.2-1.2); Calc. Creatinine Clearance 0 mL/min (70-130); Calcium 9.6 mg/dL (7.8-10.44); Carbon Dioxide 28 mmol/L (22-29); Chloride 104 mmol/L (98-107); Estimated GFR-MDRD Greater than 90; Globulin 2.9 g/dL (2.4-3.5); Glucose 83 mg/dL (70-105); Potassium 4.1 mmol/L (3.5-5.1); Protein, Total 7.1 g/dL (6.0-8.3); Sodium 138 mmol/L (136-145)
[2018-10-11 18:03] LABS: Anisocytosis SLIGHT = 6-15 cells (100X) (0-5/hpf); Eosinophils 3 % (0-10); Lymphocytes 76 % (21-51); MDiff Complete? YES; Monocytes 7 % (0-10); Neutrophil 14 % (42-75); Platelet Morphology Comment Appears Adequate; Poikilocytosis SLIGHT = 6-15 cells (100X) (0-5/hpf); Polychromasia SLIGHT = 2-3 cells (100X) (0-2/hpf); Target Cells SLIGHT = 2-5 cells (100X) (0-1/hpf)
== END 2018-10-11 17:49 | disposition left against medical advice (07) ==
LOC: ERS 16:31
DX: Z53.21 Procedure and treatment not carried out due to patient leaving prior to being seen by health care provider (principal)
CPT/HCPCS: 36415; 80053; 81003; 81015; 85025; 85046

== ENCOUNTER 2018-11-01 11:04 | Inpatient (IN) | payer MEDICAID, SELFPAY ==
--- NOTE | 2018-11-01 11:34 | RAD ---
Chest 2 views: 11/01/2018 COMPARISON: 06/18/2018 HISTORY: Bilateral flank pain with fever FINDINGS: Lungs are clear. Heart and mediastinal contours are unremarkable. Clips in right upper quad rant suggest prior cholecystectomy. IMPRESSION: No acute findings.
[2018-11-01 12:00] LABS: Bacteria/HPF 3+ HPF (None Seen); Bilirubin 1+ (Negative); Blood, Urine 1+ (Negative); Clarity Turbid (Clear); Glucose, Urine (Dipstick) Normal (Negative); Leukocyte 500 Leu/uL (Negative); Nitrite Negative (Negative); Protein, Urine (Dipstick) 30 mg/dL (Neg-Trace); Squamous Epithelial 0-3 HPF (0-3); Urobilinogen 6 mg/dL (Less than 2); WBC/HPF Greater than 50 HPF (0-3)
[2018-11-01 12:15] LABS: Pregnancy Test - Urine (BHCG) Negative (Negative); Pregu Control Background? CLEAR/WHITE (CLR/WHITE); Pregu Control Bar Appear? YES (CONTROL BAR); Specific Gravity 1.015 (1.002-1.036)
[2018-11-01 12:28] LABS: Hemoglobin 9.1 g/dL (12.0-16.0); Mean Corpuscular HGB CONC 36.1 g/dL (32.0-36.0); Mean Corpuscular Hemoglobin 29.8 pg (27.0-31.0); Mean Corpuscular Volume 82.4 fL (78.0-98.0); Mean Platelet Volume 7.8 fL (7.4-10.4); Platelet Count 413 thou/uL (130-400); RBC Distribution Width 14.3 % (11.5-14.5); Red Blood Cell (RBC) Count 3.04 mill/uL (4.20-5.40)
[2018-11-01 12:32] LABS: Reticulocyte Count 4.3 % (0.5-1.5)
[2018-11-01 12:43] LABS: ALT (SGPT) 55 U/L (8-55); AST (SGOT) 45 U/L (5-34); Albumin 3.9 g/dL (3.5-5.0); Alkaline Phosphatase 158 U/L (40-150); Anion Gap 13 mmol/L (10-20); BUN (Urea Nitrogen) 7 mg/dL (7.0-18.7); Calc. Creatinine Clearance 0 mL/min (70-130); Calcium 9.2 mg/dL (7.8-10.44); Carbon Dioxide 20 mmol/L (22-29); Chloride 106 mmol/L (98-107); Estimated GFR-MDRD Greater than 90; Globulin 2.7 g/dL (2.4-3.5); Glucose 108 mg/dL (70-105); Potassium 3.2 mmol/L (3.5-5.1); Protein, Total 6.6 g/dL (6.0-8.3); Sodium 136 mmol/L (136-145)
[2018-11-01] MEDS ORDERED: ISOVUE-370 76%-LOCM 1 ML ONE (12:58)
[2018-11-01 12:59] LABS: Band 7 % (5-11); Eosinophils 2 % (0-10); Lymphocytes 8 % (21-51); MDiff Complete? YES; Monocytes 7 % (0-10); Neutrophil 76 % (42-75); Platelet Morphology Comment Appears Increased; Polychromasia MODERATE = 3-4 cells (100X) (0-2/hpf); Target Cells MODERATE= 6-15 cells (100X) (0-1/hpf); Tear Drops SLIGHT = 2-5 cells (100X) (0-1/hpf); White Blood Cell (WBC) Count 21.1 thou/uL (4.8-10.8)
[2018-11-01] MEDS ORDERED: Morphine 4 MG/ML VIAL ONE ×2 (13:32→16:26)
[2018-11-01] MEDS ORDERED: Ondansetron PF 4 MG/2 ML Vial ONE (13:33)
[2018-11-01] MEDS ORDERED: Acetaminophen 500 MG TAB ONE ×2 (13:33→18:35)
[2018-11-01] MEDS ORDERED: cefTRIAXone\\ROCEPHIN 2 GM VIAL ONE (13:49)
--- NOTE | 2018-11-01 15:21 | CT ---
EXAM: Abdomen and pelvic CT scan with contrast: HISTORY: Bilateral flank pain COMPARISON: None FINDINGS: The visualized lung bases are clear. Liver: Unremarkable. Gallbladder:Status post cholecystectomy. Pancreas:Unremarkable Spleen:Unremarkable. Adrenal glands:Unremarkable. Kidneys:No renal calculus or acute obstruction. Subtle bilateral renal cortical hypodensities involving both kidneys with minimal perirenal fat stran ding somewhat more prominent on the right side raising concern for pyelonephritis. Scattered up to borderline sized central mesenteric and right lower quadrant mesenteric lymph nodes t he largest measures 1.1 cm in short axis in the right lower quadrant. No evidence for bowel obstruction. No CT evidence for acute appendicitis. The urinary bladder is unremarkable. 4.4 x 5.8 cm diameter left ovarian cyst. Moderate amount of cul-de-sac fluid. No abscess, adenopathy, or abnormal fluid collection within the abdomen or pelvis. IMPRESSION: Evidence for pyelonephritis. Minimally enlarged to borderline sized mesenteric lymph nodes. 1.4 x 5.8 cm left ovarian cyst with cul-de-sac fluid.
[2018-11-01] MEDS ORDERED: Azithromycin 500 MG VIAL ONE (15:53)
--- NOTE | 2018-11-01 17:38 | PDOC.FPRHP ---
- History of Present Illness Chief Complaint: flank pain History of Present Illness: Ms. De Santiago is a 23yo AAF w/ a PMH of sickle cell anemia who presents to the ED for 3 days of malaise, dysuria, lower abdominal pain radiating to her back, fever of 102F at home, nausea, and general body pain. She states that she has a history of frequent UTIs when she was [age] years ago, but has not had many since then. She states that she has not had a pain crisis since 06/2018. She also complains of chest pains exacerbated by breathing deeply and some shortness of breath. She feels as though she has had an upper respiratory infection since last week and has a known sick contact. ED Course: 2000mg tylenol, 16mg morphine, 500mg azithromycin, 2g rocephin, duoneb, zofran, 30mL/kg bolus NS + 1L fluid, - Allergies/Adverse Reactions Allergies Allergy/AdvReac Type Severity Reaction Status Date / Time apple AdvReac Verified 06/18/18 21:21 hydromorphone [From Dilaudid] AdvReac Verified 06/18/18 21:21 - Home Medications Medication Instructions Recorded Confirmed Type HYDROcodone Bit/APAP 10/325 [Wheeler] 1 - 2 tab PO Q6HR PRN 08/24/13 06/18/18 History Ibuprofen 800 mg PO Q8HR PRN 12/21/15 06/18/18 History HYDROmorphone [Dilaudid] 1 - 2 tab PO Q3H PRN 05/15/16 06/18/18 History Hydroxyurea [Hydrea] 500 mg PO TID 09/01/16 06/18/18 History Folic Acid 1 mg PO DAILY 06/18/18 06/18/18 History Naproxen [EC-Naproxen] 500 mg PO Q12H 06/18/18 06/18/18 History diphenhydrAMINE [Benadryl] 25 mg PO Q4HR PRN 06/18/18 06/18/18 History traMADol HCl [Tramadol HCl] 1 - 2 tab PO Q6H PRN 06/18/18 06/18/18 History - History PMHx: Sickle cell anemia Anxiety and depression PSHx: Cholecystectomy FHx: Mom- HTN GM- HTN, DMII Social: Denies alcohol, tobacco, and illicit drug use. - Review of Systems General: reports: fever/chills, weight/appetite/sleep changes, fatigue. denies : night sweats Eyes: denies: eye pain, vision changes ENT: reports: nasal congestion, rhinorrhea Respiratory: reports: cough, congestion, shortness of breath. denies: exercise intolerance Cardiovascular: reports: chest pain. denies: palpitation, edema, paroxysmal nocturnal dyspnea, orthopnea Gastrointestinal: reports: nausea, abdominal pain. denies: vomiting, diarrhea, constipation, GI bleeding Genitourinary: reports: dysuria, polyuria. denies: incontinence, discharge Skin: denies: rashes, lesions, jaundice, itching Musculoskeletal: reports: pain, tenderness, arthritis/arthralgias. denies: stiffness, swelling Neurological: denies: numbness, syncope, seizure Psychological: reports: anxiety, depression - Vital signs On arrival to ED: BP: 104/68, Pulse: 123, Resp: 19, Temp: 100.6 (Oral), Pain: 9 , O2 sat: 91 on Room Air, Time: 11/01/2018 11:37 On evaluation: BP: 110/65, Pulse: 95, Resp: 17, Temp: 98.3 (Oral), O2 sat: 99 on 2L Oxygen, - Physical Exam Constitutional: NAD, awake, alert and oriented, well developed HEENT: normocephalic and atraumatic, PERRLA, EOMI, conjunctiva clear, grossly normal vision, grossly normal hearing -HEENT: dry mucus membranes Neck: supple, FROM, no LAD Chest: no-tender to palpation, no lesions Heart: RRR, normal S1/S2, no murmurs/rubs/gallops, pulses present, no edema Lungs: CTAB, no respiratory distress, good air movement, no rales/rhonchi Abdomen: soft, bowel sounds present, no masses/distention -Abdomen: TTP, CVA tenderness Musculoskeletal: normal structure, normal tone Neurological: no focal deficit, CN II-XII intact Skin: no rash/lesions, good turgor Heme/Lymphatic: no unusual bruising or bleeding, no purpura, no petechia Psychiatric: normal mood and affect, good judgment and insight, intact recent and remote memory FMR H&P: Results - Labs Result Diagrams: 11/01/18 12:07 11/01/18 12:07 Lab results: WBC 21.1 thou/uL (4.8-10.8) H 11/01/18 12:07 Hgb 9.1 g/dL (12.0-16.0) L 11/01/18 12:07 Hct 25.1 % (36.0-47.0) L 11/01/18 12:07 MCV 82.4 fL (78.0-98.0) 11/01/18 12:07 Plt Count 413 thou/uL (130-400) H 11/01/18 12:07 Band Neuts % (Manual) 7 % (5-11) 11/01/18 12:07 Sodium 136 mmol/L (136-145) 11/01/18 12:07 Potassium 3.2 mmol/L (3.5-5.1) L 11/01/18 12:07 Chloride 106 mmol/L (98-107) 11/01/18 12:07 Carbon Dioxide 20 mmol/L (22-29) L 11/01/18 12:07 BUN 7 mg/dL (7.0-18.7) 11/01/18 12:07 Creatinine 0.71 mg/dL (0.6-1.1) 11/01/18 12:07 Glucose 108 mg/dL (70-105) H 11/01/18 12:07 Lactic Acid 0.9 mmol/L (0.5-2.2) 11/01/18 14:01 Calcium 9.2 mg/dL (7.8-10.44) 11/01/18 12:07 Total Bilirubin 6.0 mg/dL (0.2-1.2) H 11/01/18 12:07 AST 45 U/L (5-34) H 11/01/18 12:07 ALT 55 U/L (8-55) 11/01/18 12:07 Alkaline Phosphatase 158 U/L (40-150) H 11/01/18 12:07 Serum Total Protein 6.6 g/dL (6.0-8.3) 11/01/18 12:07 Albumin 3.9 g/dL (3.5-5.0) 11/01/18 12:07 Lipase Less than 4 U/L (8-78) L 11/01/18 12:07 Urine Ketones Negative mg/dL (Negative) 11/01/18 11:43 Urine Blood 1+ (Negative) A 11/01/18 11:43 Urine Nitrite Negative (Negative) 11/01/18 11:43 Ur Leukocyte Esterase 500 Jesu/uL (Negative) A 11/01/18 11:43 Urine RBC 7-10 HPF (0-3) A 11/01/18 11:43 Urine WBC Greater than 50 HPF (0-3) A 11/01/18 11:43 Ur Squamous Epith Cells 0-3 HPF (0-3) 11/01/18 11:43 Urine Bacteria 3+ HPF (None Seen) A 11/01/18 11:43 - Radiology Interpretation CT scan - abdomen Status: report reviewed by me (Evidence for pyelonephritis. Minimally enlarged to borderline sized mesenteric lymph nodes. 1.4 x 5.8 cm left ovarian cyst with cul-de-sac fluid.) Chest x-ray Status: report reviewed by me (IMPRESSION: No acute findings.) FMR H&P: A/P - Plan Sepsis 2/2 Pyelonephritis - Met SIRS criteria: elevated WBC count, febrile, tachycardic. With dysuria and flank pain. UA/CT+ for UTI as source. - 30ml/kg bolus given in ED, will give another liter as she appear volume down. - IV antibiotic therapy: Vancomycin and Rocephin - Will monitor closely on medical Sickle cell pain crisis - Reticulocyte count of 4.3, ARC 2.6 - Will give fluids at 150mL / hour - Her troponins are neg without definitive chest pain or hypoxia which makes acute chest syndrome less likely - continue home pain meds, morphine for breakthrough pain - schedule bowel regimen to treat/prevent constipation. Dispo: Stable, admit to medical floor VTE: Lovenox Diet: Regular Code: Full FMR H&P: Upper Level - Pertinent history Pt presents to ED for 1 day hx of b/l flank pain and dysuria, fever recorded on admission. Pmhx significant for sickle cell. Azithro/rocephin, morphine, 30ml/ kg NS given in ED. On dilaudid and norco at home. Denies CP, SOB, Severe abdominal pain - Pertinent findings General: in acute pain HEENT: NCAT Chest: even inspiratory and expiratory effort, no retractions, CTAB Abdomen: non distended, diffusely TTP MSK: no weakness, or loss of ROM noted Extremities: non-edematous, pulses present Neuro: grossly intact, no focal deficits See video editing internship portion for full ROS, PE, labs and vitals. - Plan Date/Time: 11/01/18 7517 IKings DO, have evaluated this patient and agree with findings/plan as outlined by video editing internship resident. Pertinent changes/additions are listed here. Sepsis 2/2 pyelonephritis - elevated WBC count, febrile, with dysuria and flank pain. UA/CT+ for UTI - 30ml/kg bolus given in ED, will transition to rocephin and vancomycin - monitor closely on medical Sickle cell crisis - ARC 2.6- appropriate for degree of anemia - additional L now, run NS @ 150 - trop neg, no definitive chest pain or hypoxia, acute chest syndrome unlikely - continue home pain meds, morphine for breakthrough pain Dispo: admit to medical floor, tx for pyelo
[2018-11-01] MEDS ORDERED: HYDROmorphone 2 MG TAB PO PRN (18:54)
[2018-11-01] MEDS ORDERED: HYDROcodone/Acetaminophen 10/325 mg Tablet PO PRN (18:54)
[2018-11-01] MEDS: Sodium Chloride 0.9% 1,000 ML IV SCH (19:51)
[2018-11-01] MEDS: Senokot S 8.6-50 MG TAB PO SCH (19:52)
[2018-11-01] MEDS: Morphine 4 MG/ML VIAL SLOW IVP PRN (19:52)
[2018-11-01] MEDS: Hydroxyurea 500 MG CAP PO SCH (19:52)
[2018-11-01 20:54] VITALS: BMI 31.1
[2018-11-01] MEDS ORDERED: Vancomycin HCl 1.75 GM in Sodium Chloride 0.9% 500 ML IVPB SCH (21:00)
[2018-11-01] MEDS: HYDROcodone/Acetaminophen 10/325 mg Tablet PO PRN (21:17)
[2018-11-01] MEDS: diphenhydrAMINE 25 MG CAP PO PRN (22:30)
[2018-11-01] MEDS: HYDROmorphone 2 MG TAB PO PRN (22:31)
[2018-11-01] MEDS: Vancomycin HCl 1 GM in Premix Bag 1 BAG IVPB SCH (22:32)
[2018-11-02] MEDS: HYDROmorphone 2 MG TAB PO PRN ×6 (00:38→22:17)
--- NOTE | 2018-11-02 00:54 | HP ---
I have examined the patient. I have discussed the case with Dr. Deena Salgado, and agree with her assessment plan. HISTORY OF PRESENT ILLNESS: Briefly, Ms. De Santiago is a very pleasant 23-year-old black female patient with sickle cell disease. She states that starting about 2-3 days ago, she notices some increased urinary frequency and urgency followed eventually by fever, chills, and dysuria. She presented to our emergency room this afternoon with urinary tract infection and possible urosepsis. She has been admitted for further evaluation and treatment. PHYSICAL EXAMINATION: VITAL SIGNS: Currently, her blood pressure is 100.6, blood pressure is 110/80, her pulse rate is 88, and respirations 14. GENERAL: She is awake, alert, appears to be in moderate distress from back pain. EAR, NOSE, THROAT: Her mucous membranes are moist. No erythema. NECK: Supple. CARDIAC: Heart rhythm regular. No gallop or murmur noted. LUNGS: Clear. No rales, rhonchi, or wheezes. No respiratory distress. ABDOMEN: Flat and soft. She has mild suprapubic tenderness, but no rebound or rigidity. NEUROLOGIC: She has no focal deficits. LABORATORY DATA: Her CBC shows a white count of 21,100, her hemoglobin is 9.1 and hematocrit is 25.1. Chemistry; sodium 136, potassium 3.2, chloride 106, bicarb 20, BUN 13, creatinine 0.7. Her total bilirubin is 6. Her urinalysis shows positive leukocyte esterase, negative nitrites, greater than 50 white blood cells per high-power field and 3+ bacteria. ASSESSMENT: Acute urinary tract infection with possible sepsis. PLAN: Admit, broad-spectrum antibiotics, fluids, pain control. Job ID: [id number]
[2018-11-02] MEDS: diphenhydrAMINE 25 MG CAP PO PRN ×4 (03:12→19:11)
[2018-11-02 05:24] LABS: #Eosinphils 0.2 thou/uL (0.0-0.7); #Lymphocytes 1.9 thou/uL (1.20-3.40); #Monocytes 1.1 thou/uL (0.11-0.59); %Basophils 0.1 % (0.0-1.0); %Eosinophils 1.4 % (0.0-10.0); %Lymphocytes 10.8 % (21.0-51.0); %Monocytes 6.6 % (0.0-10.0); %Neutrophils 81.1 % (42.0-75.0); Hemoglobin 8.5 g/dL (12.0-16.0); Mean Corpuscular HGB CONC 35.9 g/dL (32.0-36.0); Mean Corpuscular Hemoglobin 30.3 pg (27.0-31.0); Mean Corpuscular Volume 84.5 fL (78.0-98.0); Mean Platelet Volume 7.9 fL (7.4-10.4); Platelet Count 370 thou/uL (130-400); RBC Distribution Width 14.4 % (11.5-14.5); Red Blood Cell (RBC) Count 2.81 mill/uL (4.20-5.40); White Blood Cell (WBC) Count 17.3 thou/uL (4.8-10.8)
[2018-11-02 05:33] LABS: ALT (SGPT) 42 U/L (8-55); AST (SGOT) 38 U/L (5-34); Albumin 3.2 g/dL (3.5-5.0); Alkaline Phosphatase 139 U/L (40-150); Anion Gap 12 mmol/L (10-20); BUN (Urea Nitrogen) 4 mg/dL (7.0-18.7); Bilirubin, Total 2.8 mg/dL (0.2-1.2); Calc. Creatinine Clearance 162 mL/min (70-130); Calcium 8.4 mg/dL (7.8-10.44); Carbon Dioxide 19 mmol/L (22-29); Chloride 106 mmol/L (98-107); Estimated GFR-MDRD Greater than 90; Glucose 85 mg/dL (70-105); Potassium 3.2 mmol/L (3.5-5.1); Protein, Total 6.2 g/dL (6.0-8.3); Sodium 134 mmol/L (136-145)
--- NOTE | 2018-11-02 06:19 | PDOC.FM ---
- Subjective Subjective: Patient is doing well this morning. She states that her kidney and urinary pain are improving, but her Sickle Cell pain is about the same. - Objective MAR Reviewed: Yes Vital Signs & Weight: Vital Signs (12 hours) Temp Pulse Resp BP BP Pulse Ox 11/02/18 04:06 100.7 F H 112 H 20 110/61 93 L 11/02/18 00:11 99.3 F 100 12 113/58 L 97 11/01/18 20:00 98 11/01/18 19:17 98.3 F 123 H 16 140/71 98 11/01/18 18:54 93 L Weight Weight 74.84 kg Result Diagrams: 11/02/18 04:41 11/02/18 04:41 Phys Exam - Physical Examination Constitutional: NAD HEENT: moist MMs, sclera anicteric Neck: supple, full ROM Respiratory: no wheezing, no rales, no rhonchi, clear to auscultation bilateral Cardiovascular: RRR, no significant murmur, no rub Gastrointestinal: soft, no distention, positive bowel sounds TTP Musculoskeletal: no edema, pulses present Neurological: non-focal, normal sensation, moves all 4 limbs Psychiatric: normal affect, A&O x 3 Skin: no rash, normal turgor Dx/Plan - Plan Plan: Sepsis 2/2 Pyelonephritis vs cystitis - Met SIRS criteria: elevated WBC count, febrile, tachycardic. With dysuria and flank pain. UA/CT+ for UTI as source. - fluid resuscitated yesterday, will monitor fluid status today. - IV antibiotic therapy: Vancomycin and Rocephin - Will monitor closely on medical Sickle cell pain crisis - Reticulocyte count of 4.3, ARC 2.6 - Will give fluids at 150mL / hour - Her troponins are neg without definitive chest pain or hypoxia which makes acute chest syndrome less likely - continue home pain meds, morphine for breakthrough pain - schedule bowel regimen to treat/prevent constipation. Dispo: Stable, admit to medical floor VTE: Lovenox Diet: Regular Code: Full
[2018-11-02] MEDS: Vancomycin HCl 1 GM in Premix Bag 1 BAG IVPB SCH ×2 (06:24→14:20)
[2018-11-02] MEDS: Sodium Chloride 0.9% 1,000 ML IV SCH ×3 (06:25→21:44)
[2018-11-02] MEDS: HYDROcodone/Acetaminophen 10/325 mg Tablet PO PRN ×3 (06:37→18:18)
[2018-11-02] MEDS: Enoxaparin Sodium 40 MG/0.4 ML SYRINGE SC SCH (08:24)
[2018-11-02] MEDS: Hydroxyurea 500 MG CAP PO SCH ×3 (08:24→20:31)
[2018-11-02] MEDS: Senokot S 8.6-50 MG TAB PO SCH ×2 (08:24→20:30)
--- NOTE | 2018-11-02 10:41 | PRG ---
DATE OF SERVICE: 11/02/2018 Ms. De Santiago looks and feels much better this morning. Her CT abdomen and pelvis does not show any anatomic abnormalities of the kidney. No hydronephrosis. No kidney stones. It does show evidence of pyelonephritis. She is currently on broad-spectrum antibiotics, and as stated above, she feels much better and is currently afebrile. Her pain control seems adequate. For now, we will continue broad-spectrum antibiotics, pending results of urine and blood cultures. Job ID: [id number]
[2018-11-02] MEDS: cefTRIAXone\\ROCEPHIN 1 GM in Sodium Chloride 0.9% 100 ML IVPB SCH (14:18)
[2018-11-02] MEDS: Acetaminophen 325 MG TAB PO PRN (17:11)
[2018-11-02 21:28] LABS: Vancomycin, Trough 13.1 ug/mL
[2018-11-02] MEDS: Vancomycin HCl 1.25 GM in Sodium Chloride 0.9% 250 ML 250 ML IVPB SCH (21:43)
[2018-11-03] MEDS: HYDROcodone/Acetaminophen 10/325 mg Tablet PO PRN ×3 (00:51→18:05)
[2018-11-03] MEDS: diphenhydrAMINE 25 MG CAP PO PRN ×2 (02:25→23:44)
[2018-11-03] MEDS: HYDROmorphone 2 MG TAB PO PRN ×6 (02:25→23:41)
[2018-11-03] MEDS: Acetaminophen 325 MG TAB PO PRN ×3 (02:25→16:41)
[2018-11-03] MEDS: Vancomycin HCl 1.25 GM in Sodium Chloride 0.9% 250 ML 250 ML IVPB SCH (05:32)
[2018-11-03] MEDS: Sodium Chloride 0.9% 1,000 ML IV SCH ×4 (05:34→18:30)
--- NOTE | 2018-11-03 05:34 | PDOC.FM ---
- Subjective Subjective: Patient was resting well this morning. She had a headache last night that resolved with O2 1L via NC. She states her pain is back to baseline. She did not require additional pain medication last night. She did fever overnight. Her urinary and kidney pain have improved. - Objective MAR Reviewed: Yes Vital Signs & Weight: Vital Signs (12 hours) Temp Pulse Resp BP Pulse Ox 11/03/18 00:00 99.9 F H 111 H 16 120/57 L 100 11/02/18 18:21 102.5 F H Weight Weight 74.84 kg Result Diagrams: 11/03/18 08:09 11/03/18 08:09 Phys Exam - Physical Examination Constitutional: NAD HEENT: moist MMs, sclera anicteric Neck: supple, full ROM Respiratory: no wheezing, no rales, no rhonchi, clear to auscultation bilateral Cardiovascular: RRR, no significant murmur, no rub Gastrointestinal: soft, non-tender, no distention, positive bowel sounds Musculoskeletal: no edema, pulses present Neurological: non-focal, moves all 4 limbs Psychiatric: normal affect, A&O x 3 Skin: no rash, normal turgor Dx/Plan - Plan Plan: Sepsis 2/2 Pyelonephritis vs cystitis - Met SIRS criteria: elevated WBC count, febrile, tachycardic. With dysuria and flank pain. UA/CT+ for UTI as source. - IV antibiotic therapy: Vancomycin and Rocephin (11/01) - Had fever overnight. Will monitor vital signs today. Consider deescalating antibiotics and d/c tomorrow if fever resolves. Sickle cell pain crisis - Reticulocyte count of 4.3, ARC 2.6 - Her troponins are neg without definitive chest pain or hypoxia which makes acute chest syndrome less likely - continue home pain meds, morphine for breakthrough pain - schedule bowel regimen to treat/prevent constipation. Dispo: Stable, admit to medical floor VTE: Lovenox Diet: Regular Code: Full Addendum - Attending - Attending Attestation Date/Time: 11/03/18 [id number] I personally evaluated the patient and discussed the management with Dr. Salgado. I agree with the History, Examination, Assessment and Plan documented above with any addition or exceptions noted below. The patient is feeling better. Will wean down oxygen. Urine culture growing e coli sensitive to rocephin. Will stop vanc, anticipate change to po antibiotics tomorrow.
[2018-11-03] MEDS ORDERED: Potassium Chloride 20 MEQ TAB PO SCH (05:45)
[2018-11-03] MEDS: Ondansetron PF 4 MG/2 ML Vial IVP PRN (08:02)
[2018-11-03] MEDS: Enoxaparin Sodium 40 MG/0.4 ML SYRINGE SC SCH (08:03)
[2018-11-03] MEDS: Senokot S 8.6-50 MG TAB PO SCH ×2 (08:03→20:05)
[2018-11-03] MEDS: Hydroxyurea 500 MG CAP PO SCH ×3 (08:04→20:05)
[2018-11-03 08:37] LABS: Anion Gap 11 mmol/L (10-20); BUN (Urea Nitrogen) Less than 4 mg/dL (7.0-18.7); Calc. Creatinine Clearance 167 mL/min (70-130); Calcium 8.7 mg/dL (7.8-10.44); Carbon Dioxide 23 mmol/L (22-29); Chloride 105 mmol/L (98-107); Estimated GFR-MDRD Greater than 90; Glucose 83 mg/dL (70-105); Potassium 3.3 mmol/L (3.5-5.1); Sodium 136 mmol/L (136-145)
[2018-11-03 08:54] LABS: Anisocytosis SLIGHT = 6-15 cells (100X) (0-5/hpf); Band 12 % (5-11); Lymphocytes 21 % (21-51); MDiff Complete? YES; Mean Corpuscular HGB CONC 36.8 g/dL (32.0-36.0); Mean Corpuscular Hemoglobin 29.8 pg (27.0-31.0); Mean Corpuscular Volume 80.8 fL (78.0-98.0); Monocytes 6 % (0-10); Neutrophil 59 % (42-75); Platelet Count 338 thou/uL (130-400); Polychromasia SLIGHT = 2-3 cells (100X) (0-2/hpf); RBC Distribution Width 15.8 % (11.5-14.5); Reactive Lymphocytes 1 % (0-10); Sickle Cells SLIGHT = 1-5 cells (100X) (None Seen); Target Cells SLIGHT = 2-5 cells (100X) (0-1/hpf); White Blood Cell (WBC) Count 12.4 thou/uL (4.8-10.8)
[2018-11-03] MEDS: cefTRIAXone\\ROCEPHIN 1 GM in Sodium Chloride 0.9% 100 ML IVPB SCH (14:20)
--- NOTE | 2018-11-03 17:42 | RAD ---
PA AND LATERAL VIEWS CHEST: History: Hypoxia. Sickle cell anemia. FINDINGS: Comparison made to exam of 11-01-18. Heart size is normal. The lungs are expanded without lobar consolidation, pneumothoraces, or pleural effusions. The bony thorax is unremarkable. IMPRESSION: Normal exam. POS: [facility]
[2018-11-04] MEDS: Sodium Chloride 0.9% 1,000 ML IV SCH ×4 (01:00→18:51)
[2018-11-04] MEDS ORDERED: Acetaminophen 325 MG TAB PO SCH (02:45)
[2018-11-04 04:06] LABS: ALT (SGPT) 38 U/L (8-55); AST (SGOT) 41 U/L (5-34); Albumin 3.2 g/dL (3.5-5.0); Alkaline Phosphatase 128 U/L (40-150); Anion Gap 13 mmol/L (10-20); BUN (Urea Nitrogen) 4 mg/dL (7.0-18.7); Bilirubin, Total 2.3 mg/dL (0.2-1.2); Calc. Creatinine Clearance 159 mL/min (70-130); Calcium 8.6 mg/dL (7.8-10.44); Carbon Dioxide 22 mmol/L (22-29); Chloride 103 mmol/L (98-107); Estimated GFR-MDRD Greater than 90; Globulin 3.3 g/dL (2.4-3.5); Glucose 90 mg/dL (70-105); Potassium 3.2 mmol/L (3.5-5.1); Protein, Total 6.5 g/dL (6.0-8.3); Sodium 135 mmol/L (136-145)
[2018-11-04 04:11] LABS: Troponin I 0.119 ng/mL (< 0.028)
[2018-11-04] MEDS: HYDROcodone/Acetaminophen 10/325 mg Tablet PO PRN ×2 (04:26→09:12)
[2018-11-04 04:30] LABS: Anisocytosis SLIGHT = 6-15 cells (100X) (0-5/hpf); Band 17 % (5-11); Elliptocytes SLIGHT = 2-5 cells (100X) (0-1/hpf); Hemoglobin 6.9 g/dL (12.0-16.0); Hypochromia SLIGHT = 6-15 cells (100X) (0-5/hpf); Lymphocytes 6 % (21-51); MDiff Complete? YES; Mean Corpuscular HGB CONC 38.4 g/dL (32.0-36.0); Mean Corpuscular Hemoglobin 30.1 pg (27.0-31.0); Mean Corpuscular Volume 78.4 fL (78.0-98.0); Mean Platelet Volume 8.1 fL (7.4-10.4); Monocytes 5 % (0-10); Myelocyte 1 % (0-0); Neutrophil 71 % (42-75); Nucleated RBC 1 % (0); Platelet Count 310 thou/uL (130-400); Platelet Morphology Comment Appears Adequate; RBC Distribution Width 18.3 % (11.5-14.5); Sickle Cells SLIGHT = 1-5 cells (100X) (None Seen); Target Cells SLIGHT = 2-5 cells (100X) (0-1/hpf); White Blood Cell (WBC) Count 17.3 thou/uL (4.8-10.8)
[2018-11-04] MEDS ORDERED: Lactated Ringer's 1,000 ML IV SCH (05:00)
--- NOTE | 2018-11-04 05:43 | PDOC.FM ---
- Subjective Subjective: Patient is complaining of chest pain this am. She reports increasing shortness of breath and chest pain overnight. She required O2 all of last night. - Objective MAR Reviewed: Yes Vital Signs & Weight: Vital Signs (12 hours) Temp Pulse Resp BP BP Pulse Ox 11/04/18 05:07 99.6 F 11/04/18 04:00 101.7 F H 115 H 16 115/54 L 93 L 11/04/18 02:00 100.9 F H 127 H 16 98/46 L 93 L 11/03/18 23:38 98.3 F 97 16 105/55 L 100 11/03/18 21:49 98.1 F 103 H 16 119/58 L 93 L 11/03/18 20:00 94 L 11/03/18 19:58 98.6 F 95 16 118/61 11/03/18 18:36 100.1 F H 117 H 20 140/79 94 L 11/03/18 18:10 100.6 F H 103 H 18 128/72 95 11/03/18 17:53 99.3 F 18 Weight Weight 74.84 kg I&O: 11/02/18 11/03/18 11/04/18 06:59 06:59 06:59 Intake Total 2810 4960 Output Total 2700 Balance 2810 2260 Result Diagrams: 11/04/18 03:35 11/04/18 03:35 Radiology Reviewed by me: Yes Phys Exam - Physical Examination Fatigued appearing. HEENT: PERRLA, moist MMs, sclera anicteric Neck: no nodes, supple, full ROM Respiratory: no wheezing, no rales, no rhonchi, clear to auscultation bilateral Cardiovascular: RRR, no significant murmur, no rub Tachypneic, 93% on 2L Gastrointestinal: soft, non-tender, no distention, positive bowel sounds Musculoskeletal: no edema, pulses present Neurological: non-focal, moves all 4 limbs Psychiatric: normal affect, A&O x 3 Skin: no rash, normal turgor Dx/Plan (1) Acute chest syndrome Code(s): D57.01 - HB-SS DISEASE WITH ACUTE CHEST SYNDROME Status: Acute (2) Normocytic anemia Code(s): D64.9 - ANEMIA, UNSPECIFIED Status: Acute (3) Pyelonephritis Code(s): N12 - TUBULO-INTERSTITIAL NEPHRITIS, NOT SPCF ACUTE OR CHRONIC Status: Acute (4) Sickle cell pain crisis Code(s): D57.00 - HB-SS DISEASE WITH CRISIS, UNSPECIFIED Status: Acute - Plan Plan: 23 yoF w/ a history of sickle cell disease presented for acute cystitis / pyelonephritis. Acute chest syndrome Patient reports increasing chest pain, shortness of breath, and increasing oxygen requirement. She is currently satting 93% on 2L. Repeat chest xray pending read. Troponin <0.010 > 0.119 > 0.164 Will continue trending troponins. Chest X-ray suspicious of ACS vs Pneumonitis. Will cover with broad spectrum antibiotiscs. BLE Doppler and CTA ordered to rule out PE. Stat EKG normal. Will continue pain management with home doses, with morphine for breakthrough pain. Sepsis 2/2 Pyelonephritis vs cystitis Met SIRS criteria: elevated WBC count, febrile, tachycardic. With dysuria and flank pain. UA/CT+ for UTI as source. IV antibiotic therapy: Rocephin (11/01) (Vancomycin 11/01-11/03) Continues to have cyclic fever overnight. Will monitor vital signs today. Will hold Rocephin today, due to broad spec coverage of pneumonitis/pnuemonia. Sickle cell pain crisis Reticulocyte count of 4.3, ARC 2.6 continue home pain meds, morphine for breakthrough pain schedule bowel regimen to treat/prevent constipation. Dispo: Stable, admit to medical floor VTE: Lovenox Diet: Regular Code: Full Addendum - Attending - Attending Attestation Date/Time: 11/04/18 [id number] I personally evaluated the patient and discussed the management with Dr. Salgado. I agree with the History, Examination, Assessment and Plan documented above with any addition or exceptions noted below. The patient began complaining of worsening chest pain and shortness of breath. Her oxygen requirement has increased. Troponins are slowly increasing. Will continue to trend. Anemia has worsened, will transfuse 1 unit prbc's and trend h/h. Transfering to [facility]. Pt is getting a midline put in. Consulting pulmonology. Getting CTA chest.
[2018-11-04 07:17] LABS: Troponin I 0.164 ng/mL (< 0.028)
[2018-11-04] MEDS: diphenhydrAMINE 25 MG CAP PO PRN ×2 (07:28→14:07)
[2018-11-04] MEDS: HYDROmorphone 2 MG TAB PO PRN ×5 (07:28→23:33)
[2018-11-04] MEDS: Ondansetron ODT 4 MG TAB PO PRN ×2 (07:44→15:10)
[2018-11-04] MEDS ORDERED: Azithromycin 500 MG in Sodium Chloride 0.9% 250 ML 250 ML IVPB SCH (08:00)
--- NOTE | 2018-11-04 08:49 | RAD ---
TWO VIEW CHEST: COMPARISON: Previous day. INDICATION: Acute chest syndrome. FINDINGS: There are patchy and interstitial opacities bilaterally, progressive from previous day, and most conf luent at the left lung base. Cardiac silhouette is prominent. IMPRESSION: Interstitial and alveolar prominence of the lungs, progressive and most confluent at the left lower l lucio zone. This may be on the basis of pneumonitis/pneumonia. Given history of sickle cell, developi ng infarction is not excluded. Correlate clinically. Imaging followup may prove useful. POS: [facility]
[2018-11-04] MEDS: Senokot S 8.6-50 MG TAB PO SCH ×2 (09:08→20:29)
[2018-11-04] MEDS: Acetaminophen 325 MG TAB PO PRN ×2 (09:08→19:24)
[2018-11-04] MEDS: Hydroxyurea 500 MG CAP PO SCH ×3 (09:08→21:36)
[2018-11-04] MEDS: Enoxaparin Sodium 40 MG/0.4 ML SYRINGE SC SCH (09:09)
[2018-11-04 10:24] LABS: Troponin I 0.173 ng/mL (< 0.028)
[2018-11-04] MEDS: Morphine 4 MG/ML VIAL SLOW IVP PRN (11:07)
[2018-11-04] MEDS: Ondansetron PF 4 MG/2 ML Vial IVP PRN (11:08)
[2018-11-04] MEDS ORDERED: Potassium Chloride 40 MEQ in Premix Bag 1 BAG IVPB SCH (12:00)
--- NOTE | 2018-11-04 12:13 | CT ---
CT ANGIOGRAM THORAX WITH CONTRAST: (CTA pulmonary angiogram) DATE: 11/04/2018 HISTORY: 23-year-old female with sickle cell crisis presents with dyspnea. TECHNIQUE: IV injection of iodinated contrast. Scan acquisition timing attempted to coincide with iodinated contrast bolus reaching maximal density in pulmonary arteries. 3-D MIP reconstructions. FINDINGS: No pulmonary thromboembolism is identified. No thoracic aortic aneurysm or dissection. Right pleural effusion occupies approximately 20% volume of right hemithoracic cavity. Left pleural effusion occupies approximately 10% volume of left hemithoracic cavity. There is bilateral pulmonary interstit ial edema. No pneumothorax. There is cardiomegaly. Minimal pericardial effusion. IMPRESSION: 1. Evidence for congestive heart failure: Cardiomegaly, small bilateral pleural effusions, and pulmon remigio interstitial edema. 2. No evidence of pulmonary thromboembolism.
[2018-11-04] MEDS: Piperacillin/Tazobactam 4.5 GM in Sodium Chloride 0.9% 100 ML IVPB SCH ×3 (12:22→23:33)
[2018-11-04 13:04] LABS: Troponin I 0.167 ng/mL (< 0.028)
--- NOTE | 2018-11-04 13:34 | ULT ---
BILATERAL LOWER EXTREMITY VENOUS DOPPLER ULTRASOUND: Date: 11/04/18 HISTORY: Bilateral lower extremity edema. TECHNIQUE: Fine scale ultrasound with color flow and spectral Doppler imaging of the deep venous systems of the lower extremities was performed bilaterally. FINDINGS: There is good flow, compression, and augmentation noted in the common femoral, femoral, deep femoral, popliteal, posterior tibial, and greater saphenous veins on either side. IMPRESSION: No evidence of deep venous thrombosis in either lower extremity. POS: [facility]
[2018-11-04] MEDS ORDERED: Iopamidol 370 76% 100 ML VIAL ONE (15:25)
[2018-11-04] MEDS ORDERED: Potassium Chloride 20 MEQ TAB PO SCH (16:30)
[2018-11-04] MEDS ORDERED: Furosemide 20 MG/2 ML VIAL SLOW IVP SCH (16:30)
[2018-11-04] MEDS ORDERED: Polyethylene Glycol 3350 17 GM Packet PO SCH (17:00)
[2018-11-04] MEDS: Potassium Chloride 20 MEQ in Premix Bag 1 BAG IVPB SCH (17:16)
[2018-11-04 18:41] LABS: Troponin I 0.201 ng/mL (< 0.028)
[2018-11-04] MEDS: Vancomycin HCl 1.25 GM in Sodium Chloride 0.9% 250 ML 250 ML IVPB SCH (20:35)
[2018-11-04 22:19] LABS: Troponin I 0.236 ng/mL (< 0.028)
--- NOTE | 2018-11-04 23:43 | CON ---
DATE OF CONSULTATION: 11/04/2018 SERVICE: Pulmonary Medicine. REASON FOR CONSULTATION: Respiratory failure. HISTORY OF PRESENT ILLNESS: The patient is a 23-year-old female with past medical history significant for sickle cell disease. We have actually confirmed that here with hemoglobin electrophoresis. She typically sees Dr. Fatima and Antonio in [place], [place]. She was in her usual state of health when she had onset of flank discomfort three days prior to admission. She was having some high temperature of 102 degrees. She was discovered to have pyelonephritis. She was put into the hospital. While in the hospital, she started having some chest discomfort and increasing shortness of breath. She was treated aggressively for sickle cell pain crisis. The patient's hemoglobin dropped off a little bit, but the bilirubin improved. She subsequently developed increasing difficulty breathing. A stat CTA of the chest was performed and she was moved to the [facility] for fears of acute chest syndrome. She is a little bit somnolent right now. Without gentle stimulation , she will fall asleep within about 5 seconds. She indicates having some fevers. They were recorded last night. She had an episode of vomiting up a little bit of Gatorade this morning. She does not have much of an appetite. She has not had a bowel movement for days. Otherwise, general review of systems is essentially unremarkable. PAST MEDICAL HISTORY: 1. Sickle cell disease. 2. Anxiety disorder. 3. Major depressive disorder. PAST SURGICAL HISTORY: Cholecystectomy. FAMILY HISTORY: Noncontributory. SOCIAL HISTORY: Negative for alcohol, tobacco, or illicit drug use. She has no exposure to chemicals, dust, asbestos, or tuberculosis. ALLERGIES: HYDROMORPHONE?. MEDICATIONS: List of her inpatient medications was reviewed. No specific updates were made at this time. I have added a little dose of Lasix to see if we can mobilize a touch fluid. REVIEW OF SYSTEMS: General, head, ears, eyes, nose, throat, cardiovascular, respiratory, GI, , musculoskeletal, neurologic, and skin is negative except as mentioned in the HPI. PHYSICAL EXAMINATION: VITAL SIGNS: Currently, afebrile. She had a maximum temperature of 101.7 yesterday evening. That being said, her overall temperature profile spikes continue to decrease in severity. Pulse 104, blood pressure 123/70, respirations 19, and saturation 95% on 2 L nasal cannula. GENERAL: The patient is somnolent, but wakes up gently with minimal stimulation. HEENT: Normocephalic and atraumatic. Sclerae white. Conjunctivae pink. Oral mucosa is moist without lesions. LUNGS: Decent air entry with crackles present throughout bilateral lung solano. No rhonchi or wheezing appreciated. HEART: Normal rate, regular. ABDOMEN: Soft, nontender, and nondistended. Bowel sounds are positive. MUSCULOSKELETAL: No cyanosis or clubbing. There is trace pitting throughout. NEUROLOGIC: Grossly nonfocal. LABORATORY DATA: WBC 17.3, hemoglobin 6.9, and platelets 310,000. Her band count is uptrending to 17 with a lymphocyte count of 6. Troponin is uptrending to 0.17, LDH 370 which is truthfully not horrendously elevated. Procalcitonin is unremarkable. Potassium 3.2. Basic metabolic profile and liver function studies are otherwise unremarkable. Of note, her total bilirubin level has trended downward from 6 to 2.3. Urinalysis is positive for leukocyte esterase, white blood cells , red blood cells, and 3+ bacteria. Urine test was unremarkable. Vancomycin trough is 13.1. Blood culture is growing E coli in 2/2, which is sensitive to just about everything except for ampicillin and Bactrim. IMAGIN. Chest x-ray on presentation was unremarkable for any acute cardiopulmonary abnormalities. There was a little cardiomegaly at that time, which was quite subtle. 2. CT abdomen and pelvis demonstrates findings consistent with pyelonephritis. There was a little bit of fluid in the cul-de-sac. No obvious abscess formation was identified. 3. Repeat chest x-ray demonstrates new increasing infiltrates with interstitial pattern of edema. Cephalization is a little bit more prominent. She also has a larger cardiac silhouette. 4. Ultrasound of bilateral lower extremities is without evidence of DVT. 5. CTA of the chest demonstrates no evidence of a pulmonary embolism. Bilateral pleural fluid is present. This is simple in layering. She also has interstitial fullness and scattered ground-glass opacifications, which are more severe in the perihilar region. Of note, the right atrium, right ventricle, left atrium, and left ventricle are all dilated significantly. ASSESSMENT: 1. Acute hypoxic respiratory failure, suspect volume overload. 2. Sickle cell disease with pain crisis. 3. Pyelonephritis. 4. Bacteremia secondary to Escherichia coli. 5. Jyv-EF-mzkyaxwif myocardial infarction secondary to demand. 6. Acute heart failure, suspected. DISCUSSION AND PLAN: I will get a BNP added on to the morning laboratories. We will also give her a small dose of Lasix today and tomorrow morning. My suspicion is that the acute pain crisis is improved, but the increasing shortness of breath and infiltrates are coming from a touch of volume overload. Her LDH is not terribly elevated. Furthermore, the bilirubin is clearing beautifully suggesting that what ever hemolysis was happening is now improving. We will continue working on pain control. Antibiotic selection appears to be more than adequate. We will trend the reticulocyte count, LDH. I will check a magnesium and phosphorus tomorrow morning. We will also get routine basic metabolic profile and CBC. I will initiate a bowel regimen. Pulmonary/Critical Care will follow very closely. 70 minutes have been devoted to this patient in various activities. I personally reviewed all imaging studies and laboratory data noted within this document. For fifty percent of this time, I was interacting with the patient at the bedside or coordinating care with the care team. For the remainder of the time I was immediately available to the patient in the hospital unit. Job ID: [id number] MTDD
[2018-11-05 01:40] LABS: CKMB 0.8 ng/mL (0-6.6)
[2018-11-05] MEDS: HYDROmorphone 2 MG TAB PO PRN ×7 (02:34→23:22)
[2018-11-05 04:14] LABS: Reticulocyte Count 2.7 % (0.5-1.5)
[2018-11-05 04:19] LABS: Anion Gap 11 mmol/L (10-20); BUN (Urea Nitrogen) 4 mg/dL (7.0-18.7); Calc. Creatinine Clearance 157 mL/min (70-130); Calcium 8.6 mg/dL (7.8-10.44); Carbon Dioxide 27 mmol/L (22-29); Chloride 104 mmol/L (98-107); Estimated GFR-MDRD Greater than 90; Glucose 100 mg/dL (70-105); Phosphorus 2.9 mg/dL (2.3-4.7); Potassium 3.1 mmol/L (3.5-5.1); Sodium 139 mmol/L (136-145)
[2018-11-05 05:09] LABS: Hemoglobin 6.9 g/dL (12.0-16.0); Mean Corpuscular HGB CONC 38.9 g/dL (32.0-36.0); Mean Corpuscular Hemoglobin 30.9 pg (27.0-31.0); Mean Corpuscular Volume 79.5 fL (78.0-98.0); Mean Platelet Volume 8.4 fL (7.4-10.4); Platelet Count 281 thou/uL (130-400); RBC Distribution Width 19.2 % (11.5-14.5); Red Blood Cell (RBC) Count 2.22 mill/uL (4.20-5.40); White Blood Cell (WBC) Count 16.7 thou/uL (4.8-10.8)
[2018-11-05 05:10] LABS: Anisocytosis SLIGHT = 6-15 cells (100X) (0-5/hpf); Band 4 % (5-11); Eosinophils 3 % (0-10); Hemoglobin C Crystals SLIGHT (None Seen); Lymphocytes 24 % (21-51); MDiff Complete? YES; Monocytes 7 % (0-10); Neutrophil 62 % (42-75); Nucleated RBC 3 % (0); Polychromasia SLIGHT = 2-3 cells (100X) (0-2/hpf); Sickle Cells SLIGHT = 1-5 cells (100X) (None Seen); Target Cells SLIGHT = 2-5 cells (100X) (0-1/hpf)
--- NOTE | 2018-11-05 05:30 | PDOC.FM ---
- Subjective Subjective: Ms. De Santiago was resting comfortably this morning. Her chest pain is better this morning. However she is still significantly short of breath. - Objective MAR Reviewed: Yes Vital Signs & Weight: Vital Signs (12 hours) Temp Resp Pulse Ox 11/05/18 03:37 97.9 F 11/05/18 00:00 98.5 F 11/04/18 20:30 101.3 F H 11/04/18 20:00 96 11/04/18 19:50 28 H 94 L 11/04/18 19:43 103.1 F H Weight Weight 74.84 kg Most Recent Monitor Data Heart Rate from ECG 84 NIBP 129/84 NIBP BP-Mean 99 Respiration from ECG 27 SpO2 99 I&O: 11/03/18 11/04/18 11/05/18 06:59 06:59 06:59 Intake Total 2810 4960 2480 Output Total 2700 2100 Balance 2810 2260 380 Result Diagrams: 11/05/18 03:30 11/05/18 03:30 Phys Exam - Physical Examination Constitutional: NAD HEENT: moist MMs, sclera anicteric Neck: supple, full ROM Respiratory: no wheezing, no rales, no rhonchi, clear to auscultation bilateral Cardiovascular: RRR, no significant murmur, no rub Gastrointestinal: soft, non-tender, no distention, positive bowel sounds patient feels that she needs to have bowel movement. Musculoskeletal: pulses present diffuse edema, non-pitting Neurological: non-focal, moves all 4 limbs Psychiatric: normal affect, A&O x 3 Skin: no rash, normal turgor, cap refill <2 seconds Dx/Plan (1) Acute chest syndrome Code(s): D57.01 - HB-SS DISEASE WITH ACUTE CHEST SYNDROME Status: Acute (2) Normocytic anemia Code(s): D64.9 - ANEMIA, UNSPECIFIED Status: Acute (3) Pyelonephritis Code(s): N12 - TUBULO-INTERSTITIAL NEPHRITIS, NOT SPCF ACUTE OR CHRONIC Status: Acute (4) Sickle cell pain crisis Code(s): D57.00 - HB-SS DISEASE WITH CRISIS, UNSPECIFIED Status: Acute - Plan Plan: 23 yoF w/ a history of sickle cell disease presented for acute cystitis / pyelonephritis. Acute chest syndrome Patient reports increasing chest pain, shortness of breath, and increasing oxygen requirement. She is currently satting 94-96% on 2L. Troponin 0.201 > 0.236 > 0.172 Will cover with broad spectrum antibiotics - Vanc, Zosyn, Levaquin (11/04/18) CTA and venous doppler negative for PE. Stat EKG normal. Hb did not improve with 1 unit PRBC. Will consider transfusing more today. Will continue pain management with home doses, with additional dilaudid for breakthrough pain. On scheduled bowel regimen. Sepsis 2/2 Pyelonephritis vs cystitis Met SIRS criteria: elevated WBC count, febrile, tachycardic. With dysuria and flank pain. UA/CT+ for UTI as source. IV antibiotic therapy: Rocephin (11/01) (Vancomycin 11/01-11/03) Continues to have cyclic fever overnight. Will monitor vital signs today. Will hold Rocephin today, due to broad spec coverage of pneumonitis/pnuemonia. Sickle cell pain crisis Reticulocyte count of 4.3, ARC 2.6 continue home pain meds, morphine for breakthrough pain schedule bowel regimen to treat/prevent constipation. Dispo: Stable, admit to medical floor VTE: Lovenox Diet: Regular Code: Full Addendum - Attending - Attending Attestation Date/Time: 11/05/18 7810 I personally evaluated the patient and discussed the management with Dr. Salgado. I agree with the History, Examination, Assessment and Plan documented above with any addition or exceptions noted below. Pt's hemoglobin is not improving with transfusion, concern for worsening sickle cell crisis. Her shortness of breath is improved. She has received a dose of lasix. Initiating transfer to higher level of care per critical care and hem/ onc. Pt's shallot packer is located at [facility].
[2018-11-05] MEDS ORDERED: Potassium Chloride 20 MEQ TAB PO SCH ×2 (05:45→12:00)
[2018-11-05] MEDS: Piperacillin/Tazobactam 4.5 GM in Sodium Chloride 0.9% 100 ML IVPB SCH ×4 (05:47→23:26)
[2018-11-05] MEDS: Sodium Chloride 0.9% 1,000 ML IV SCH (05:48)
[2018-11-05] MEDS ORDERED: Sodium Chloride 0.9% 1,000 ML IV SCH (08:11)
[2018-11-05] MEDS ORDERED: Magnesium Sulfate 2 GM in Sodium Chloride 0.9% 100 ML IVPB SCH (08:15)
[2018-11-05] MEDS ORDERED: Magnesium 2 GM/50 ML 2 GM in Premix Bag 1 BAG IVPB SCH (08:45)
[2018-11-05] MEDS: Enoxaparin Sodium 40 MG/0.4 ML SYRINGE SC SCH (08:59)
[2018-11-05] MEDS: Furosemide 20 MG/2 ML VIAL SLOW IVP SCH (08:59)
[2018-11-05] MEDS: Hydroxyurea 500 MG CAP PO SCH ×3 (08:59→20:15)
[2018-11-05] MEDS: Polyethylene Glycol 3350 17 GM Packet PO SCH (09:00)
[2018-11-05] MEDS: Senokot S 8.6-50 MG TAB PO SCH ×2 (09:00→20:15)
[2018-11-05] MEDS: Acetaminophen 325 MG TAB PO PRN (09:13)
[2018-11-05] MEDS: Vancomycin HCl 1.25 GM in Sodium Chloride 0.9% 250 ML 250 ML IVPB SCH ×2 (10:22→20:15)
--- NOTE | 2018-11-05 11:15 | PDOC.EVN ---
Event Note - Event Note Event Note: Per the auto care center manager, heme/onc, and primary team this patient needs to be transferred to a higher level of care. She may need exchange transfusion at some point soon which cannot be done here. Called and spoke with transfer center , initiated transfer at 1100. Spoke with primary nurse.
--- NOTE | 2018-11-05 12:15 | PRG ---
DATE OF SERVICE: 11/05/2018 SERVICE: Pulmonary Medicine. INTERVAL HISTORY: The patient is doing a little better from respiratory standpoint. That being said, she continues to have ongoing pain. Her fever profile picked back up last night, prompting empiric initiation of vancomycin despite the fact that we have identified species on blood cultures. She denies any current nausea or vomiting. She still does not have much of an appetite. She appears to be more comfortable today and a touch less toxic. PHYSICAL EXAMINATION: VITAL SIGNS: Currently temperature is 100.6. T-max overnight was 103.1. Pulse 109, blood pressure 142/97, respirations 35, saturation 96%, currently on 3 L nasal cannula. GENERAL: The patient is awake and alert, in no apparent distress. LUNGS: Decent air entry. Dependent crackles are noted. No prolonged expiratory phase or wheezing is appreciated. HEART: Normal rate, regular. ABDOMEN: Soft, nontender, nondistended. Bowel sounds are positive. MUSCULOSKELETAL: No cyanosis or clubbing. There is trace to 1+ pitting in bilateral lower extremities. NEUROLOGIC: Grossly nonfocal. LABORATORY DATA: WBC 16.7, hemoglobin 6.9, and platelets 281,000. Retic count is decreased to 2.7 despite that her hemoglobin has fallen back down to 6.9 after unit of blood yesterday. LDH continues to improve to 351, BNP 911, troponin is now downtrending. Her magnesium 1.8, potassium 3.1. Basic metabolic profile and phosphorus are otherwise unremarkable. E coli is growing in both 1/2 blood cultures and a urine culture with the same resistance profiles. Second blood culture was negative. ASSESSMENT: 1. Acute hypoxic respiratory failure. Suspect volume overload, not acute chest syndrome. 2. Sickle cell disease with pain crisis. 3. Pyelonephritis. 4. Bacteremia secondary to Escherichia coli. 5. Zkp-JH-qzmjtcsyu elevation myocardial infarction, improving. 6. Acute heart failure, suspected. 7. Acute chest syndrome, unlikely. DISCUSSION AND PLAN: I think it is reassuring that the patient's shortness of breath has improved dramatically with a dose of Lasix. That being said, she continues to have ongoing pain issues. With 1 unit of blood, her hemoglobin did not budge last night. The LDH continues to fall off, and she is making an inappropriate retic response. This is suggesting to me that we may be dealing with an aplastic crisis or a sequestration event. Hematology consultation is pending. I do believe that our original antibiotic selection was more than adequate to cover this E coli. The addition of the vancomycin is probably not helping at this time. If she remains in this hospital, Pulmonary/Critical Care will continue to follow, but I believe initial recommendations from Oncology were to consider transitioning this patient to her sickle cell center. Job ID: [id number] MTDD
--- NOTE | 2018-11-05 15:23 | CON ---
DATE OF CONSULTATION: REASON FOR CONSULT: Sickle cell anemia. HISTORY OF PRESENT ILLNESS: Ms. De Santiago is a pleasant 23-year-old female with known history of sickle cell anemia, who presented to the emergency room with a several-day history of flank pain and fever. She was admitted and diagnosed with pyelonephritis. Her hemoglobin on admission was 9.1. Over the course of the next several days, it has dropped to 6.9. She has been having chest discomfort and increasing shortness of breath. She underwent a chest x-ray, which showed new infiltrates with interstitial pattern of edema. She had cardiomegaly. BNP returned elevated at 911.1. The patient's retic count has trended down also and this morning, her retic count is 2.7. She denies any complaints at this time. Pain is controlled with narcotics and her O2 is on. PAST MEDICAL HISTORY: 1. Sickle cell disease. 2. Anxiety and depression. PAST SURGICAL HISTORY: Cholecystectomy. ALLERGIES: TO DILAUDID. HOME MEDICATIONS: 1. Benadryl. 2. Folic acid. 3. Hydrocodone. 4. Hydrea. 5. Ibuprofen. 6. Naproxen. 7. Tramadol. FAMILY HISTORY: Noncontributory. SOCIAL HISTORY: No alcohol, tobacco, or illicit drug use. REVIEW OF SYSTEMS: Negative except for noted in HPI. PHYSICAL EXAMINATION: VITAL SIGNS: Temperature is 100.6, heart rate is 109, respiratory rate is 35, BP is 142/97. She is 96% on 2 L. GENERAL: Obese female, in no acute distress. HEENT: Normocephalic and atraumatic. Pupils are equal and reactive to light. CV: Regular rate and rhythm. She is tachycardic. LUNGS: Unlabored. ABDOMEN: Obese. NEUROLOGICAL: Nonfocal. PSYCH: She is alert, oriented, and appropriate. PERTINENT LABS AND X-RAYS: Current WBCs are 16.7, hemoglobin 6.9, hematocrit 17.3, MCV is 79, RDW is 19.2, neutrophils 62%, 4% bands, 24% lymphocytes, retic count is 2.7. Sodium 139, potassium 3.1, chloride 104, CO2 is 27, BUN is 4, creatinine 0.66, calcium 8.6, phosphorus 2.9, LDH 351. BNP is 911.1, bilirubin is 2.3, ALT is 38, alkaline phosphatase is 128. ASSESSMENT: 1. Sickle cell anemia. 2. New cardiomegaly with elevated BNP. 3. Low retic count worrisome for aplastic crisis. DISCUSSION: The patient has an inappropriate response to her drop in red blood cells, certainly could be due from infection with parvovirus B19. She is poorly responsive to blood transfusion given yesterday with her new findings of cardiomegaly and bone marrow suppression. Recommend transfer to her specialist at [facility] in [place]. Case has been discussed with Dr. Willett, Dr. Lake, and Dr. Ledbetter. Thank you for the consult. Job ID: [id number]
[2018-11-05 18:48] VITALS: BP 147/102
[2018-11-05] MEDS: HYDROcodone/Acetaminophen 10/325 mg Tablet PO PRN (23:55)
--- NOTE | 2018-11-05 23:57 | PDOC.FM ---
- Subjective Subjective: Received call from nursing staff regarding epistaxis for over 2 hours without relief. Patient continues to complain of blood trickling down the back of her throat. Local pressure with intranasal gauze has not been effective. Rhinorocket placed at 23:45 with hemostasis at that time. H&H with platelets as well as INR ordered at this time. Follow up when results are known. - Objective Vital Signs & Weight: Vital Signs (12 hours) Temp Pulse Resp BP 11/05/18 21:58 24 H 11/05/18 20:00 98.9 F 26 H 11/05/18 16:20 98.5 F 70 20 147/102 H 11/05/18 15:49 98.1 F 11/05/18 13:25 98.8 F 84 20 121/67 11/05/18 13:10 99.3 F 84 20 126/76 Weight Weight 74.84 kg Most Recent Monitor Data Heart Rate from ECG 89 NIBP 147/102 NIBP BP-Mean 117 Respiration from ECG 20 SpO2 96 I&O: 11/04/18 11/05/18 11/06/18 06:59 06:59 06:59 Intake Total 4960 4015 1600 Output Total 2700 3225 2500 Balance 2260 790 -900 Result Diagrams: 11/05/18 03:30 11/05/18 03:30
[2018-11-06 00:30] LABS: Hemoglobin 7.9 g/dL (12.0-16.0); Platelet Count 309 thou/uL (130-400)
[2018-11-06 01:07] LABS: INR-International Normal Ratio 1.4; PTT 51.5 SEC (22.9-36.1); Prothrombin Time 17.6 SEC (12.0-14.7)
--- NOTE | 2018-11-06 05:15 | PDOC.FM ---
- Subjective Subjective: Patient resting well this am, states she had a nosebleed last night and currently has a rhinorocket in place. Her pain is better controlled. She is still requiring O2 but less short of breath. - Objective MAR Reviewed: Yes Vital Signs & Weight: Vital Signs (12 hours) Temp Resp Pulse Ox 11/06/18 01:50 24 H 11/06/18 00:00 98.8 F 11/05/18 21:58 24 H 11/05/18 20:00 98.9 F 26 H 95 Weight Weight 74.84 kg Most Recent Monitor Data Heart Rate from ECG 74 NIBP 115/61 NIBP BP-Mean 79 Respiration from ECG 20 SpO2 92 I&O: 11/04/18 11/05/18 11/06/18 06:59 06:59 06:59 Intake Total 4960 4015 1600 Output Total 2700 3225 2500 Balance 2260 790 -900 Result Diagrams: 11/06/18 05:50 11/06/18 05:50 Phys Exam - Physical Examination Constitutional: NAD HEENT: PERRLA, moist MMs, sclera anicteric Neck: supple, full ROM Respiratory: no wheezing, no rales, no rhonchi, clear to auscultation bilateral Cardiovascular: RRR, no significant murmur, no rub Gastrointestinal: soft, non-tender, no distention, positive bowel sounds Musculoskeletal: pulses present, edema present Neurological: non-focal, normal sensation, moves all 4 limbs Psychiatric: normal affect, A&O x 3 Skin: no rash, normal turgor, cap refill <2 seconds Dx/Plan (1) Acute chest syndrome Code(s): D57.01 - HB-SS DISEASE WITH ACUTE CHEST SYNDROME Status: Acute (2) Normocytic anemia Code(s): D64.9 - ANEMIA, UNSPECIFIED Status: Acute (3) Pyelonephritis Code(s): N12 - TUBULO-INTERSTITIAL NEPHRITIS, NOT SPCF ACUTE OR CHRONIC Status: Acute (4) Sickle cell pain crisis Code(s): D57.00 - HB-SS DISEASE WITH CRISIS, UNSPECIFIED Status: Acute - Plan Plan: 23 yoF w/ a history of sickle cell disease presented for acute cystitis / pyelonephritis. Acute chest syndrome vs aplastic crisis vs sequestration Inappropriate reticulocyte count response. (4.3> 2.7) She is currently satting 94-96% on 2L via face mask Will cover with broad spectrum antibiotics - Vanc, Zosyn, Levaquin (11/04/18) CTA and venous doppler negative for PE. Stat EKG normal. Hb 6.9 > 7.9 with second unit of blood. Will continue pain management with home doses, with additional dilaudid for breakthrough pain. On scheduled bowel regimen. Continue to monitor closely. She is currently stable Hb increased 1 point with additional unit yesterday. Sepsis 2/2 Pyelonephritis vs cystitis Met SIRS criteria: elevated WBC count, febrile, tachycardic. With dysuria and flank pain. UA/CT+ for UTI as source. IV antibiotic therapy: Rocephin (11/01) (Vancomycin (11/01) Continues to have cyclic fever overnight. Will monitor vital signs today. Will hold Rocephin today, due to broad spec coverage of pneumonitis/pnuemonia. Sickle cell pain crisis continue home pain meds, morphine for breakthrough pain schedule bowel regimen to treat/prevent constipation. Dispo: Stable, may still transfer to [facility] VTE: Lovenox Diet: Regular Code: Full Addendum - Attending - Attending Attestation Date/Time: 11/06/18 3926 I personally evaluated the patient and discussed the management with Dr. Salgado. I agree with the History, Examination, Assessment and Plan documented above with any addition or exceptions noted below. The patient is still waiting on transfer to [facility]. H/H stable.
[2018-11-06] MEDS: HYDROmorphone 2 MG TAB PO PRN ×3 (05:39→16:21)
[2018-11-06] MEDS: Piperacillin/Tazobactam 4.5 GM in Sodium Chloride 0.9% 100 ML IVPB SCH ×2 (05:46→14:05)
[2018-11-06 06:35] LABS: Anion Gap 9 mmol/L (10-20); BUN (Urea Nitrogen) 4 mg/dL (7.0-18.7); Calc. Creatinine Clearance 169 mL/min (70-130); Calcium 8.8 mg/dL (7.8-10.44); Carbon Dioxide 30 mmol/L (22-29); Chloride 102 mmol/L (98-107); Estimated GFR-MDRD Greater than 90; Glucose 90 mg/dL (70-105); Potassium 3.3 mmol/L (3.5-5.1); Sodium 138 mmol/L (136-145)
[2018-11-06 07:25] LABS: Hemoglobin 7.7 g/dL (12.0-16.0); Mean Corpuscular Hemoglobin 29.6 pg (27.0-31.0); Mean Corpuscular Volume 82.2 fL (78.0-98.0); Mean Platelet Volume 8.2 fL (7.4-10.4); Platelet Count 333 thou/uL (130-400); RBC Distribution Width 19.1 % (11.5-14.5); Red Blood Cell (RBC) Count 2.61 mill/uL (4.20-5.40); White Blood Cell (WBC) Count 14.8 thou/uL (4.8-10.8)
[2018-11-06] MEDS ORDERED: Potassium Chloride 20 MEQ TAB PO SCH (07:30)
[2018-11-06 07:52] LABS: Band 7 % (5-11); Eosinophils 3 % (0-10); Hemoglobin C Crystals MODERATE (None Seen); Lymphocytes 26 % (21-51); MDiff Complete? YES; Monocytes 5 % (0-10); Neutrophil 58 % (42-75); Nucleated RBC 30 % (0); Sickle Cells SLIGHT = 1-5 cells (100X) (None Seen); Target Cells SLIGHT = 2-5 cells (100X) (0-1/hpf)
[2018-11-06] MEDS: Enoxaparin Sodium 40 MG/0.4 ML SYRINGE SC SCH (08:49)
[2018-11-06] MEDS: Hydroxyurea 500 MG CAP PO SCH ×2 (08:50→16:15)
[2018-11-06] MEDS: Furosemide 20 MG/2 ML VIAL SLOW IVP SCH (08:50)
[2018-11-06] MEDS: Senokot S 8.6-50 MG TAB PO SCH (08:51)
[2018-11-06] MEDS: Polyethylene Glycol 3350 17 GM Packet PO SCH (08:51)
[2018-11-06] MEDS ORDERED: Vancomycin HCl 1.25 GM in Sodium Chloride 0.9% 250 ML 250 ML IVPB SCH (09:00)
[2018-11-06 09:04] LABS: Vancomycin, Trough 7.7 ug/mL
[2018-11-06] MEDS: Vancomycin HCl 1.25 GM in Sodium Chloride 0.9% 250 ML 250 ML IVPB SCH ×2 (10:30→10:32)
[2018-11-06] MEDS: HYDROcodone/Acetaminophen 10/325 mg Tablet PO PRN ×2 (10:39→18:25)
[2018-11-06] MEDS ORDERED: Sodium Chloride 0.9% 1,000 ML IV SCH (13:00)
--- NOTE | 2018-11-06 13:34 | RAD ---
EXAM: Chest 2 views: HISTORY: Edema status post Lasix COMPARISON: 11/04/2018 FINDINGS: There is an enlarged but stable cardiomediastinal silhouette. There is no evidence of consolidation, mass, or pleural effusion. The bones are unremarkable. IMPRESSION: No evidence of acute cardiopulmonary disease
--- NOTE | 2018-11-06 13:48 | PRG ---
DATE OF SERVICE: 11/06/2018 SERVICE: Pulmonary Medicine. INTERVAL HISTORY: The patient indicates her chest discomfort, shortness of breath are much improved. She continues to have back discomfort, and leg pain. Otherwise, there has been no interval change to her condition. Her oxygen saturations are doing much better. This morning, she is a little bit tearful. She just keep saying that she wants to go home. I asked her if there is anything I could do to make her stay more comfortable, she denied. She suggested that she can take care of her leg pain at her home environment at this point. PHYSICAL EXAMINATION: VITAL SIGNS: Afebrile. Her last temperature was 100.6 yesterday morning, pulse 95, blood pressure 135/87, respirations 21, saturation 98%, currently on 3 L nasal cannula. GENERAL: The patient is awake and alert, in no apparent distress. LUNGS: Decent air entry. There is no prolonged expiratory phase or wheezing present. HEART: Normal rate, regular. ABDOMEN: Soft, nontender, nondistended. Bowel sounds are positive. MUSCULOSKELETAL: No cyanosis or clubbing. There is trace pitting in bilateral lower extremities. NEUROLOGIC: Grossly nonfocal. LABORATORY DATA: WBC 14.8 and downtrending, hemoglobin 7.7, platelets 333,000. Potassium 3.3. Basic metabolic profile is essentially unremarkable. Her bicarb has gone up to 30. LDH continues to trend downward, currently 320. E coli is growing in 1/2 blood cultures, and in the urine. They have the same sensitivity profile. IMAGING DATA: Echocardiogram demonstrates normal ejection fraction, no diastolic dysfunction. The left atrium was mildly dilated at the time this was performed. ASSESSMENT: 1. Acute hypoxic respiratory failure, still requiring oxygen. 2. Sickle-cell disease with pain crisis. 3. Pyelonephritis. 4. Bacteremia secondary to Escherichia coli. 5. Mll-PD-dmebrirte myocardial infarction, secondary to demand, resolved. DISCUSSION AND PLAN: I do not think we are dealing with acute chest syndrome. At this point, we can transition the patient out of the ICU back to the medical unit. We will repeat CBC and electrolytes in the morning. Potassium will be replaced. Lasix will be interrupted as a minimal contraction has occurred and I will initiate a very slow rate of IVF. Job ID: [id number] [facility]
--- NOTE | 2018-11-06 16:39 | EKG ---
Test Reason : STAT Blood Pressure : / mmHG Vent. Rate : 133 BPM Atrial Rate : 133 BPM P-R Int : 152 ms QRS Dur : 074 ms QT Int : 298 ms P-R-T Axes : 063 090 -61 degrees QTc Int : 443 ms Sinus tachycardia Rightward axis Cannot rule out Anterior infarct , age undetermined Abnormal ECG Confirmed by MICHAEL MCCARTNEY ([id number]) on 11/06/2018 4:38:40 PM Referred By: FELISHA Confirmed By:MICHAEL MCCARTNEY
--- NOTE | 2018-11-06 16:43 | EKG ---
Test Reason : C/O CHEST PAIN Blood Pressure : / mmHG Vent. Rate : 104 BPM Atrial Rate : 104 BPM P-R Int : 170 ms QRS Dur : 078 ms QT Int : 322 ms P-R-T Axes : 059 085 021 degrees QTc Int : 423 ms Sinus tachycardia Otherwise normal ECG Confirmed by MICHAEL MCCARTNEY ([id number]) on 11/06/2018 4:43:22 PM Referred By: CHANA *r Confirmed By:MICHAEL MCCARTNEY
[2018-11-06 20:01] VITALS: TEMP 99.2
== END 2018-11-06 20:10 | disposition short-term general hospital (02) | DRG 871 ==
LOC: ERS 11:04 → ONC 16:12 → 2NO 11-04 06:22 → IMCU/EMU 11-04 13:50
PROVIDERS: ADMIT Family Medicine; ATTEND Family Medicine
PROC: 30233N1 Transfusion of Nonautologous Red Blood Cells into Peripheral Vein, Percutaneous Approach (ICD-10-PCS; 2018-11-04)
PROC: 093K7ZZ Control Bleeding in Nasal Mucosa and Soft Tissue, Via Natural or Artificial Opening (ICD-10-PCS; principal; 2018-11-05)
DX: A41.51 Sepsis due to Escherichia coli [E. coli] (principal); J96.01 Acute respiratory failure with hypoxia; I21.4 Non-ST elevation (NSTEMI) myocardial infarction; D57.00 Hb-SS disease with crisis, unspecified; J18.9 Pneumonia, unspecified organism; N12 Tubulo-interstitial nephritis, not specified as acute or chronic; F41.9 Anxiety disorder, unspecified; R04.0 Epistaxis; F32.9 Major depressive disorder, single episode, unspecified; Z90.49 Acquired absence of other specified parts of digestive tract
CPT/HCPCS: 36415; 36430; 71046; 71275; 74177; 80048; 80053; 80202; 81003; 81015; 81025; 82553; 83605; 83615; 83690; 83735; 83880; 84100; 84145; 84484; 85025; 85046; 85610; 85730; 86850; 86900; 86901; 87040; 87077; 87086; 87149; 87186; 87804; 93005; 93010; 93306; 93970; 94640; 94760; 96361; 96365; 96366; 96367; 96375; 96376; J0456; J0696; J1650; J1940; J1956; J2270; J2405; J2543; J3370; J3475; J3490; J7050; J7620; P9016; Q0162; Q0163; Q9966; Q9967

== ENCOUNTER 2019-03-09 14:33 | Emergency (ER) | payer MEDICAID, OTHER | END 2019-03-09 15:43 | disposition home or self-care (01) | LOC: ERS 14:33 | DX: K04.7 Periapical abscess without sinus (principal); K02.9 Dental caries, unspecified; F32.9 Major depressive disorder, single episode, unspecified; F41.9 Anxiety disorder, unspecified | CPT/HCPCS: 99282 ==

== ENCOUNTER 2019-05-12 16:39 | Emergency (ER) | payer OTHER ==
[2019-05-12 17:13] LABS: #Basophils 0.1 thou/uL (0.0-0.2); #Eosinphils 1.2 thou/uL (0.0-0.7); #Lymphocytes 3.9 thou/uL (1.20-3.40); #Monocytes 0.8 thou/uL (0.11-0.59); #Neutrophils 6.2 thou/uL (1.40-6.50); %Basophils 0.4 % (0.0-1.0); %Eosinophils 10.2 % (0.0-10.0); %Monocytes 6.2 % (0.0-10.0); %Neutrophils 51.2 % (42.0-75.0); Hemoglobin 9.6 g/dL (12.0-16.0); Mean Corpuscular HGB CONC 36.2 g/dL (32.0-36.0); Mean Corpuscular Hemoglobin 31.8 pg (27.0-31.0); Mean Corpuscular Volume 87.6 fL (78.0-98.0); Mean Platelet Volume 7.3 fL (7.4-10.4); Platelet Count 487 thou/uL (130-400); RBC Distribution Width 16.9 % (11.5-14.5); Red Blood Cell (RBC) Count 3.03 mill/uL (4.20-5.40); White Blood Cell (WBC) Count 12.1 thou/uL (4.8-10.8)
[2019-05-12 17:14] LABS: Reticulocyte Count 7.6 % (0.5-1.5)
[2019-05-12 17:35] LABS: ALT (SGPT) 24 U/L (8-55); AST (SGOT) 23 U/L (5-34); Albumin 4.2 g/dL (3.5-5.0); Alkaline Phosphatase 97 U/L (40-110); Anion Gap 11 mmol/L (10-20); BUN (Urea Nitrogen) 7 mg/dL (7.0-18.7); Bilirubin, Total 1.7 mg/dL (0.2-1.2); Calc. Creatinine Clearance 0 mL/min (70-130); Calcium 9.4 mg/dL (7.8-10.44); Carbon Dioxide 28 mmol/L (22-29); Chloride 107 mmol/L (98-107); Estimated GFR-MDRD Greater than 90; Glucose 97 mg/dL (70-105); Potassium 3.9 mmol/L (3.5-5.1); Protein, Total 7.2 g/dL (6.0-8.3); Sodium 142 mmol/L (136-145)
[2019-05-12] MEDS ORDERED: Acetaminophen 500 MG TAB ONE (17:49)
[2019-05-12] MEDS ORDERED: Ketorolac Tromethamine 30 MG/ML VIAL ONE (17:49)
[2019-05-12] MEDS ORDERED: HYDROmorphone 0.5 MG/0.5 ML SYRINGE ONE ×2 (18:07→19:46)
== END 2019-05-12 21:14 | disposition home or self-care (01) ==
LOC: ERS 16:39
DX: D57.00 Hb-SS disease with crisis, unspecified (principal); F41.9 Anxiety disorder, unspecified; F32.9 Major depressive disorder, single episode, unspecified; Z79.1 Long term (current) use of non-steroidal anti-inflammatories (NSAID); Z79.899 Other long term (current) drug therapy
CPT/HCPCS: 36415; 80053; 85025; 85046; 96361; 96374; 96375; 96376; J1170; J1885

== ENCOUNTER 2022-12-29 11:20 | Emergency (ER) | payer BC, OTHER ==
[2022-12-29 12:17] LABS: SARS-CoV-2 NAA Rapid Test Not Detected (NotDetected)
[2022-12-29] MEDS ORDERED: Ketorolac Tromethamine 30 MG/ML VIAL ONE (13:13)
[2022-12-29] MEDS ORDERED: Acetaminophen 500 MG TAB ONE (13:13)
[2022-12-29 13:15] LABS: #Basophils 0.1 thou/uL (0.0-0.2); #Eosinphils 0.7 thou/uL (0.0-0.7); #Monocytes 0.6 thou/uL (0.11-0.59); #Neutrophils 5.3 thou/uL (1.40-6.50); %Basophils 0.6 % (0.0-1.0); %Eosinophils 8.9 % (0.0-10.0); %Lymphocytes 20.3 % (21.0-51.0); %Monocytes 7.1 % (0.0-10.0); %Neutrophils 62.9 % (42.0-75.0); Hematocrit 27.6 % (36.0-47.0); Hemoglobin 10.2 g/dL (12.0-16.0); Mean Corpuscular Hemoglobin 30.4 pg (27.0-31.0); Mean Corpuscular Volume 82.1 fl (78.0-98.0); Mean Platelet Volume 9.5 fL (7.4-10.4); Platelet Count 514 10x3/uL (130-400); RBC Distribution Width 13.3 % (11.5-14.5); Red Blood Cell (RBC) Count 3.36 mill/uL (4.20-5.40); White Blood Cell (WBC) Count 8.4 10x3/uL (4.8-10.8)
[2022-12-29 13:38] LABS: ALT (SGPT) 16 U/L (8-55); AST (SGOT) 21 U/L (5-34); Albumin 4.7 g/dL (3.5-5.0); Alkaline Phosphatase 78 U/L (40-110); Anion Gap 15 mmol/L (10-20); BUN (Urea Nitrogen) 6 mg/dL (7.0-18.7); Bilirubin, Total 1.2 mg/dL (0.2-1.2); Calc. Creatinine Clearance 0 mL/min (70-130); Calcium 9.5 mg/dL (7.8-10.44); Carbon Dioxide 20 mmol/L (22-29); Chloride 107 mmol/L (98-107); Estimated GFR 122; Globulin 3.3 g/dL (2.4-3.5); Glucose 90 mg/dL (70-105); Potassium 3.8 mmol/L (3.5-5.1); Sodium 138 mmol/L (136-145)
[2022-12-29 14:18] LABS: BHCG - Serum Negative (NEGATIVE)
[2022-12-29 14:19] LABS: Pregs Control Background? CLEAR/WHITE (CLR/WHITE); Pregs Control Bar Appear? YES (CONTROL BAR)
[2022-12-29 14:25] LABS: Troponin I Less than 0.010 ng/mL (< 0.028)
[2022-12-29] MEDS ORDERED: Morphine 4 MG/ML VIAL ONE ×2 (14:33→15:36)
[2022-12-29] MEDS ORDERED: Ondansetron PF 4 MG/2 ML Vial ONE (14:34)
[2022-12-29 15:01] LABS: Bilirubin Negative (Negative); Blood, Urine Negative (Negative); CAUTI Indications for Culture Dysuria,urgency,freq; Clarity Clear (Clear); Glucose, Urine (Dipstick) Normal (Negative); Ketone, Urine Negative (Negative); Leukocyte Negative Leu/uL (Negative); Nitrite Negative (Negative); Protein, Urine (Dipstick) Negative (Neg-Trace); RBC/HPF 0-3 HPF (0-3); Specific Gravity, Urine 1.015 (1.002-1.036); Squamous Epithelial 0-3 HPF (0-3); Urobilinogen 3 mg/dL (Less than 2); WBC/HPF 0-3 HPF (0-3)
[2022-12-29 15:02] LABS: Bacteria/HPF 1+ HPF (None Seen)
[2022-12-29 15:03] LABS: Urine Culture Reflex No No
== END 2022-12-29 16:41 | disposition home or self-care (01) ==
LOC: ERS 11:20
DX: D57.219 Sickle-cell/Hb-C disease with crisis, unspecified (principal)
CPT/HCPCS: 36415; 71046; 80053; 81001; 83690; 84484; 84703; 85025; 85046; 93005; 94760; 96361; 96374; 96375; 96376; J1885; J2270; J2405

== ENCOUNTER 2023-01-11 08:32 | Outpatient (CLI) | payer OTHER, BC ==
[2023-01-11 09:07] LABS: BHCG - Serum Negative (NEGATIVE); Pregs Control Background? CLEAR/WHITE (CLR/WHITE); Pregs Control Bar Appear? YES (CONTROL BAR)
[2023-01-11] MEDS ORDERED: Iopamidol 300 61% 30 ML VIAL ONE (13:50)
== END 2023-01-11 08:33 | disposition home or self-care (01) ==
LOC: RAD 08:32
PROVIDERS: ATTEND Student in an Organized Health Care Education/Training Program
DX: Z31.41 Encounter for fertility testing (principal)
CPT/HCPCS: 36415; 58340; 74740; 84703; Q9967